=== PATIENT | male | born 1985 | race Hispanic/Latino ===

== ENCOUNTER 2018-01-31 16:15 | Emergency (ER) | payer OTHER ==
[2018-01-31] MEDS ORDERED: RABIES IMMUNE GLOBULIN 1500 INTERNATIONAL UNITS/10 ML VIAL (90375) IM ×2 (16:45→17:30)
[2018-01-31] MEDS: ADACEL/BOOSTRIX VACCINE (DIPHTH/PERTUSS/ACELL/TETANUS)0.5ML SYR (90715) IM (17:17)
[2018-01-31] MEDS: RABIES VACCINE HUMAN 2.5 INTERNATIONAL UNITS/ML VIAL (90675) IM (17:18)
[2018-01-31] MEDS: RABIES IMMUNE GLOBULIN 1500 INTERNATIONAL UNITS/10 ML VIAL (90375) IM (17:50)
[2018-01-31] MEDS: RABIES IMMUNE GLOBULIN 300 INTERNATIONAL UNITS/2 ML VIAL (90375) IM (17:51)
== END 2018-01-31 18:23 | disposition home or self-care (01) ==
LOC: M ED 16:15
DX: Z20.3 Contact with and (suspected) exposure to rabies (principal); S81.052A Open bite, left knee, initial encounter; W54.0XXA Bitten by dog, initial encounter; Y92.410 Unspecified street and highway as the place of occurrence of the external cause; Y93.9 Activity, unspecified; Y99.9 Unspecified external cause status; Z79.899 Other long term (current) drug therapy
CPT/HCPCS: 90715

== ENCOUNTER → 2018-07-27 | Outpatient (CLI) | payer OTHER, MEDICAID ==
[2018-07-27 15:58] LABS: BASO % 0.5 % (0.0-1.0); EOS # 0.3 10^3/uL (0.0-0.50); EOS % 3.9 % (0.0-3.0); HEMATOCRIT 43.9 % (42.0-52.0); HEMOGLOBIN 15.4 g/dl (13.5-17.5); IMMATURE GRANULOCYTE % 0.1 % (0-3.0); LYMPH % 39.3 % (24.0-44.0); MEAN CORPUSCULAR HEMOGLOBIN 30.2 pg (27.0-33.0); MEAN CORPUSCULAR HGB CONC 35.1 g/dl (32.0-36.5); MEAN CORPUSCULAR VOLUME 86.1 fl (80.0-96.0); MONO # 0.4 10^3/uL (0.0-0.8); MONO % 5.1 % (0.0-5.0); NEUTROPHILS # 3.9 10^3/uL (1.8-7.7); NEUTROPHILS % 51.1 % (36.0-66.0); PLATELET COUNT, AUTOMATED 208 10^3/uL (150-450); RED CELL DISTRIBUTION WIDTH 12.4 % (11.5-14.5); WHITE BLOOD COUNT 7.6 10^3/uL (4.0-10.0)
[2018-07-27 16:37] LABS: ALBUMIN 4.3 GM/DL (3.2-5.2); ALBUMIN/GLOBULIN RATIO 1.34 (1.00-1.93); ALKALINE PHOSPHATASE 63 U/L (45-117); ALT/SGPT 39 U/L (12-78); ANION GAP 6 MEQ/L (8-16); AST/SGOT 28 U/L (7-37); BILIRUBIN,TOTAL 0.4 MG/DL (0.2-1.0); BLOOD UREA NITROGEN 19 MG/DL (7-18); CALCIUM LEVEL 9.1 MG/DL (8.5-10.1); CARBON DIOXIDE LEVEL 30 MEQ/L (21-32); CHLORIDE LEVEL 105 MEQ/L (98-107); FREE T4 1.06 NG/DL (0.76-1.46); GLOMERULAR FILTRATION RATE > 60.0 (>60); GLUCOSE, FASTING 104 MG/DL (70-100); IMMUNOGLOBULIN A 213 MG/DL (70-400); POTASSIUM SERUM 4.4 MEQ/L (3.5-5.1); SODIUM LEVEL 141 MEQ/L (136-145); TOTAL PROTEIN 7.5 GM/DL (6.4-8.2)
== END ==
LOC: M LAB 15:27
DX: R19.4 Change in bowel habit (principal)
CPT/HCPCS: 84443

== ENCOUNTER → 2018-07-28 | Outpatient (REF) | payer OTHER, MEDICAID | LOC: M LAB REF 12:54 | DX: R19.4 Change in bowel habit (principal) ==

== ENCOUNTER 2018-08-13 11:20 | Day surgery (SDC) | payer OTHER, MEDICAID ==
[2018-08-13] MEDS: NS 1,000 ML IV (11:32)
[2018-08-13] MEDS ORDERED: PROPOFOL 500 MG/50 ML VIAL As Ordered (12:07)
[2018-08-13] MEDS ORDERED: fentaNYL 100 MCG/2 ML INJECTION (J3010) As Ordered (12:07)
[2018-08-13] MEDS ORDERED: LIDOCAINE 2% INJ 100 MG/5 ML SDV (FOR ANES.) As Ordered (12:07)
== END 2018-08-13 13:11 | disposition home or self-care (01) ==
LOC: M OPP 11:20
DX: K92.1 Melena (principal); K64.8 Other hemorrhoids; K29.70 Gastritis, unspecified, without bleeding; J45.909 Unspecified asthma, uncomplicated; E07.9 Disorder of thyroid, unspecified; Z79.890 Hormone replacement therapy; Z80.3 Family history of malignant neoplasm of breast
CPT/HCPCS: 45378

== ENCOUNTER → 2019-08-26 | Outpatient (REF) | payer OTHER, MEDICAID ==
[~2019-08-26] MED LIST: AUGM875T28 PO; LEVO200T4
== END ==
LOC: M SMT 13:33
PROVIDERS: ATTEND Urology
DX: Z30.2 Encounter for sterilization (principal)

== ENCOUNTER 2021-08-01 14:15 | Emergency (ER) | payer OTHER, MEDICAID ==
[~2021-08-01] VITALS: Ht 180.3 cm; Wt 91.9 kg
--- OUTSIDE RECORDS SUMMARY | 2021-08-01 14:22 | CCD ---
Author Author [facility] Organization [facility] Address [address] [place] [address] Phone Care Team Providers Care Captain Room Service Name Role Phone Jonnathan RAUSCH, Lilli Unavailable [phone] Kamini RAUSCH, Morro Unavailable [phone] Morro Cristobal MD Unavailable Unavailable Sirisha RAUSCH, Zak Unavailable [phone] Kassy RAUSCH, Urbano Reed PP [phone] Lorenzo RAUSCH, Anup Unavailable [phone] Bernard RAUSCH, Harley Amezquita Unavailable Unavailable Reason for Referral No Reason for Referral Recorded Problems Includes: Active, inactive, and resolved Problems All Visits Onset Date - Time Resolved Date - Time Provider Co ndition Status Hypothyroidism Post Radio-iodine Treatment 02/28/2021 - 6:46PM Urbano Elena MD Active Note: Initially with Dr De Santiago 2014 Dyspepsia 08/13/2018 - 12:00AM Urbano hensley MD Active Note: nl EGD 08/03 Dr Evelyn palmer colonoscopy for hematochezia Simple Goiter 08/23/2014 - 12:00AM Sumit Larson MD Active Asthma, unspecified, 10/01/2013 - 12:00AM Eliz ritter RPA Active Plan of Treatment Pending Tests Order Diagnosis Results Due Ordering Provi paxton Outside Labs COVID-19 Acute pharyngitis, unspecified 07/30/21 Maria Eugenia Warner RPA Outside Labs TotalTestosterone Other fatigue 08/04/21 Maria Eugenia bell RPA Future Appointments Date Time Location Provider ANNUAL PE-followup exam07/08/2022 3:00PM [facility] Maria Eugenia Herrera [facility] Future Tests Order Diagnosis Results Due Ordering Provid er Lab CBC 08/04/21 [facility] Lab CMP 08/04/21 [facility] Lab FREET4 08/04/21 [facility] Lab Lipid Panel 08/04/21 [facility] Send Out 08/04/21 [facility] TSH 08/04/21 [facility] Findings Encounter Date Education and counseling Age and gender specific counceling on preventative health discussed with the patient using USPTF and/or ACP guidlines on health maintenance and screening. Will recheck fasting labs to include testosterone. Otherwise, see yearly or as needed in the interim ANNUAL PE-followup exam with Maria Eugenia Sharon Timmy [facility] 07/05/2021 Discussed treatment plan with the ujancarlos ent. Will get labs as above and call once results are available. We did discuss appropriate dosing of his thyroid medication. Id like him to take this first thing in the morning on an empty stomach with glass of water. Wait 30-60 minutes prior to eating. Push vitamins to supper time. Reviewed improved sleep hygiene. Will plan to see yearly or as needed in the interim Problem visit - not contagious with Maria Eugeniaolivia Wynnetyler [facility] 07/04/2020 Tylenol for discomfort or fever. Push fluids and rest. Will proceed with PCR respiratory panel and if negative proceed with COVID testing. He is agreeable. Will follow up via phone once results are known. Hygiene reviewed today. Call if persistent or high fever, increased work of breathing, persistent pain, if sxs not improving, or if concerned sick visit with Maria Eugenia Warner [facility] 11/29/2019 Discussed treatment plan with the juancarlos ent. Recommended to start a food diary to look for any specific dietary triggers. Also recommended to increase dietary fiber with citrucel or metamucil. Given persistent symptoms, blood in the stool and family history will refer for further workup and evaluation per his request. See back with questions or concerns sick visit with Maria Eugenia Warner [facility] 05/06/2018 Engaged in a lengthy conversation with the patient regarding his symptoms. >50% of visit spent in counseling and discussion. I suspect these to be anxiety induced as he lacks any cardiac risk factors. However, given persistence will refer to Cardiology for further evaluation. Reviewed red flag signs and symptoms that would warrant prompt ER follow up and he expressed good understanding sick visit with Maria Eugenia M Warner [facility] 07/21/2017 Discussed treatment plan with patient. Symptoms and exam consistent with gastrocnemius strain. However, given concern for bony abnormality on previous imaging, plain films were obtained today and unremarkable. Recommended to stretch, use moist heat and wear proper footwear. See back with any worsening or persistent symptoms, questions or concerns sick visit with Maria Eugenia Sharon Warner [facility] 04/23/2017 Tylenol for discomfort or fever. Push fluids and rest. Advised to call if persistent or high fever, increased work of breathing, persistent pain, if sxs not improving, or if concerned sick visit with Maria Eugenia Sharon Warner [facility] 12/03/2016 Discussed treatment plan with the juancarlos ent. Given his occupation, recommended changing his carrying technique to limit amount of time his elbow and wrist are in the flexed position. We also discussed the use of splint/braces during hours of sleep. If symptoms worsening or persistent, recommended further assessment with nerve conduction testing and orthopedist referral. He expressed good understanding sick visit with Maria Eugenia Sharon Warner [facility] 09/25/2016 Engaged in a lengthy conversation with the patient regarding his symptoms. I suspect these to be anxiety induced as he lacks and cardiac risk factors. However, will obtain a holter monitor to check for any rhythm abnormalities and update fasting labs. He will keep more of a detailed account of symptoms and potential triggers. Reviewed red flag signs and symptoms that would warrant any prompt urgent follow up and he expressed good understanding. See back in 2-3 weeks for follow up or sooner if issues arise sick visit with Maria Eugenia Sharon Timmy [facility] 05/22/2016 Saline nasal spray as needed. General mechanisms of infectious spread and hygiene reviewed with the patient. Instructed to call if symptoms fail to improve over next several days sick visit with Akbar Lawrence MD 06/05/2015 No ordered inhaled / nasal steroids sick visit with Akbar Lawrence MD 06/05/2015 No ordered vaporizer sick visit with Akbar Lawrence MD 2014 Ordered analgesics sick visit with Akbar Lawrence MD 015 Assessments Includes: Assessments for all patient encounters Findings Encounter Date Fatigue ANNUAL PE-followup exam/ with Maria Eugenia Warner [facility] 07/05/2021 Hypothyroidism post radio-iodine treatment ANNUAL PE-f ollowup exam/ with [facility] 07/05/2021 Routine adult history and physical (18 - 64 yrs) MARICEL Juan Luis PE-followup with [facility] 07/05/2021 Fatigue Problem visit - not contagious with [facility] 07/04/2020 Hypothyroidism Problem visit - not contagious with [facility] 07/04/2020 Upper respiratory infection , viral in nature sick vis it with [facility] 11/29/2019 Abdominal pain , suspect IBS component sick visit with [facility] 05/06/2018 Palpitations sick visit with [facility] 02/2017 Strain of gastrocnemius muscle of right leg sick visit with [facility] 04/23/2017 Acute sinusitis sick visit with [facility] 11/14 Carpal tunnel syndrome , bilateral L>R sick visit with [facility] 09/25/2016 Cubital tunnel syndrome , bilateral L>R sick visit with [facility] 09/25/2016 Palpitations sick visit with [facility] 03/2016 Acute upper respiratory infection sick visit with Akbar Ambrosio MD 06/05/2015 Allergic contact dermatitis due to chemical products s ick visit with Eliz Larson [facility] 11/30/2014 Simple goiter followup with Sumit Larson MD 05/2014 GERD sick visit with Eliz Larson [facility] 07/16 Pharyngitis sick visit with Eliz Larson [facility] 09/15 Instructions Instructions not supported for this document typeNo Instructions Recorded Medical Equipment - Implanted Devices Includes: Current and historical DevicesNo Medical Equipment Recorded Medications Includes: Current and historical Medications Current Medications (continue as prescribed) Levothyroxine Sodium 200 MCG Oral Tablet 06/27/2021 - 2021 Provider: Maria Eugenia Warner [facility] Diagnosis: 1 PO QD Past Medications on file Levothyroxine Sodium 200 MCG Oral Tablet 06/12/2021 - 2020 Provider: Maria Eugenia Warner RPA Diagnosis: 1 PO QD Levothyroxine Sodium 200 MCG Oral Tablet 05/07/2021 - 2020 Provider: Maria Eugenia Warner [facility] Diagnosis: 1 PO QD Levothyroxine Sodium 200 MCG Oral Tablet 03/03/2021 - 2019 Provider: Urbano Elena MD Diagnosis: 1 PO QD Levothyroxine Sodium 200 MCG Oral Tablet 10/09/2020 - 2020 Provider: Urbano Elena MD Diagnosis: 1 PO QD Levothyroxine Sodium 200 MCG Oral Tablet 05/18/2020 - 2020 Provider: Urbano Elena MD Diagnosis: 1 PO QD Levothyroxine Sodium 200 MCG Oral Tablet 03/13/2020 - 2019 Provider: Urbano Elena MD Diagnosis: 1 PO QD Levothyroxine Sodium 200 MCG Oral Tablet 10/11/2019 - 2019 Provider: Maria Eugenia Warner RPA Diagnosis: 1 PO QD Levothyroxine Sodium 25MCG Oral Tablet 08/05/2019 - 10/04/19 20 Provider: Maria Eugenia Warner RPA Diagnosis: Hypothyroidism, unsp ecified 1 PO QD in addition to 200mcg dose Levothyroxine Sodium 200MCG Oral Tablet 08/05/2019 - 018 Provider: Maria Eugenia Warner RPA Diagnosis: 1 PO QD Levothyroxine Sodium 200 MCG OR TABS 04/27/2019 - 05/06/2018 Provider: Maria Eugenia Warner RPA Diagnosis: 1 PO QD Levothyroxine Sodium 25 MCG OR TABS 04/27/2019 - 05/06/2018 Provider: Maria Eugenia Warner RPA Diagnosis: Hypothyroidism, unsp ecified 1 PO QD in addition to 200mcg dose Levothyroxine Sodium 25MCG Oral Tablet 01/25/2019 - 05/06/20 18 Provider: Maria Eugenia Warner RPA Diagnosis: Hypothyroidism, unsp ecified 1 PO QD in addition to 200mcg dose Levothyroxine Sodium 200MCG Oral Tablet 01/25/2019 - 018 Provider: Maria Eugenia Warner RPA Diagnosis: 1 PO QD Levothyroxine Sodium 200MCG Oral Tablet 11/24/2018 - 018 Provider: Maria Eugenia Warner RPA Diagnosis: 1 PO QD Levothyroxine Sodium 25MCG Oral Tablet 09/25/2018 - 05/06/20 18 Provider: Maria Eugenia Warner RPA Diagnosis: Hypothyroidism, unsp ecified 1 PO QD in addition to 200mcg dose Levothyroxine Sodium 200MCG Oral Tablet 09/03/2018 - 018 Provider: Maria Eugenia Warner RPA Diagnosis: 1 PO QD Levothyroxine Sodium 200MCG Oral Tablet 02/02/2018 - 018 Provider: Maria Eugenia Warner RPA Diagnosis: 1 PO QD Cartia XT 120MG Oral Capsule Extended Release 24 Hour 2016 - 07/05/2021 Provider: Diagnosis: Levothyroxine Sodium 200MCG Oral Tablet 07/22/2017 - 017 Provider: Maria Eugenia Warner RPA Diagnosis: 1 PO QD Levothyroxine Sodium 175 MCG Tablet 06/13/2017 - 07/22/2017 Provider: Urbano Elena MD Diagnosis: 1 PO QD Levothyroxine Sodium 175 MCG Tablet 06/13/2017 - 04/23/2017 Provider: Maria Eugenia Warner RPA Diagnosis: 1 PO QD Fluticasone Propionate 50 MCG/ACT Suspension 12/03/2016 - Provider: Maria Eugenia Warner RPA Diagnosis: 1 spray each nostril BID Augmentin 875-125 MG Tablet 12/03/2016 - 07/05/2021 Provider : Maria Eugenia Warner RPA Diagnosis: 1 PO BID Levothyroxine Sodium 175 MCG Tablet 05/22/2016 - 04/23/2017 Provider: Diagnosis: Triamcinolone Acetonide 0.1 % Cream 11/30/2014 - 05/22/2016 Provider: Eliz Larson RPA Diagnosis: apply to affected area BID until rash completely resolves HydrOXYzine HCl 25 MG Tablet 11/30/2014 - 07/05/2021 Provide r: Eliz Larson RPA Diagnosis: 1-2 tabs PO Q 4-6 hrs prn pruritis Omeprazole 20 MG OR CPDR 07/29/2014 - 05/22/2016 Provider: Eliz Larson RPA Diagnosis: Penicillin V Potassium 500 MG OR TABS 10/01/2013 - Provider: Eliz Larson RPA Diagnosis: Medications Administered Includes: Administered Medications in patient's chartNo Administered Medications Recorded Vital Signs Includes: Vital Signs from 07/23/2020 through 07/23/2021 Vital Name 07/23/2021 03:59P 07/05/2021 03:07P 07/05/2021 0 2:50P Height (in) 70.5 70.5 Blood Pressure Sitting (mmHg) 132/82 15 0/88 Pulse Rate-Sitting (bpm) 80 Respiration Rate (breaths/min) 2 2 Weight (lb) 216 Body Mass Index (kg/m2) 30.6 Body Surface Area (m2) 2.17 Note: Provider recheck Results Includes: Results from 07/23/2020 through 07/23/2021 FREE T4 [facility] Ordered by Urbano Elena MD on 07/05/2021 [address] [place], [address] Collected: 07/05/2021 Reported: 07/05/2021 14:25 tel :[phone] ext. 1500 FREE T4 0.83 ng/dl (0.75-1.54) None Note: Responsible Observer: KM Reviewed by Maria Eugenia Warner RPA on 07/09; All test results are final unless otherwise noted. TSH [facility] Ordered by Urbano Elena MD on 07/05/2021 [address] [place], [address] Collected: 07/05/2021 Reported: 07/05/2021 14:25 tel :[phone] ext. 1500 TSH 29.305 uIu/mL (0.5-5.8) H (High) Note: Responsible Observer: KM Reviewed by Maria Eugenia Warnre RPA on 07/09; All test results are final unless otherwise noted. FREE T4 (LAB) [facility] Ordered by Urbano Elena MD on 02/23/2021 Collected: 02/23/2021 Reported: 02/23/2021 17:39 T4 Free SerPl-mCnc 0.92 NanoGramsPerDeciLiter_[Mass_Concentration_Units] (0.89-1.76) N (Normal) Note: Responsible Observer: FREE T4 Free Thyroxine 600.7005 (D) Reviewed on 02/26/2021; All test result s are final unless otherwise noted. Vitamin D 25-OH [facility] Ordered by Urbano Elena MD on 02/23/2021 Collected: 02/23/2021 Reported: 02/25/2021 06:41 25(OH)D3+25(OH)D2 SerPl-mCnc 22 NanoGramsPerMilliLiter_[Mass_Concentration_Units] (30-100) None Note: Vitamin D Status 25-OH Vit borrero D:Deficiency: <20 ng/mLInsufficiency: 20 - 29 ng/mLOptimal: > or = 30 ng/mLFor 25-OH Vitamin D testing on patients onD2-supplementation and patients for whom quantitationof D2 and D3 fractions is required, the QuestAssureD(TM)25-OH VIT D, (D2,D3), LC/MS/MS is recommended: ordercode 82414 (patients >2yrs).See Note 1Note 1For additional information, please refer tohttp://education.Altavoz/faq/ZHC813(This link is being provided for informational/educational purposes only.)THIS TEST WAS PERFORMED AT:[facility] [address]MADAN MARIesponsible Observer: Vitamin D 25-OH Vitamin D 25-Hydroxy [id number] 914.1810 (QUEST) Reviewed on 02/26/2021; All test result s are final unless otherwise noted. Reported Physicians [facility] Ordered by Urbano Elena MD on 02/23/2021 Collected: 02/23/2021 Reported: 02/25/2021 06:41 Reported Physicians See Note None Note: Reported Physicians:Ordering: Urbano Huitron LAtmariluding: Urbano Elena Reviewed on 02/26/2021; All test result s are final unless otherwise noted. TSH [facility] Ordered by Urbano Elena MD on 02/23/2021 Collected: 02/23/2021 Reported: 02/23/2021 17:39 TSH SerPl DL<=0.005 mIU/L-aCnc 7.81 MicroInternationalUnitsPerMilliLiter_[Arbitrary_Con (0.35-5. 50) H (High) Note: Responsible Observer: TSH TSH 600 .7055 (D) Reviewed by Urbano Elena MD on 02/28/2021; All test results are final unless otherwise noted. Reported Physicians [facility] Ordered by Urbano Elena MD on 02/23/2021 Collected: 02/23/2021 Reported: 02/23/2021 17:39 Reported Physicians See Note None Note: Reported Physicians:Ordering: Urbano Huitronding: Urbano Elena Reviewed by Urbano Elena MD on 02/28/2021; All test results are final unless otherwise noted. 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 Not a current smoker 06/05/2015 Smoking Status Unknown Procedures and Surgical History Includes: Procedures from 07/23/2020 through 07/23/2021 Procedures Code Diagnosis Performing Provider Service Location Service Date TSH- Thyroid Stimulating Hormone 56474 Postprocedural hypothyroidism Urbano Elena MD [facility] 07/05/2021 Free T4- Free Thryoxine 21756 Postprocedural hypothyr oidism Urbano Elena MD [facility], [facility] 07/05/2021 Venipuncture (routine) 41163 Postprocedural hypothyroi dism Urbano Elena MD [facility], [facility] 07/05/2021 Medical History Includes: Medical History in patient's chart Description Last Updated Denial of any significant medical history 07/05/2021 Not taking OTC medications 06/05/2015 Family History Includes: Family History in patient's chart Description Last Updated Brother in good health 07/05/2021 Mother is alive HTN, DM 07/05/2021 Second brother in good health 07/05/2021 Sister in good health 07/05/2021 Maternal grandfather health status was reviewed HTN 1 09/28/2013 Review of Systems Review of Systems not supported for this document typeNo Review of Systems Recorded Mental Status Mental Status not supported for this document typeNo Mental Status Recorded Functional Status Functional Status not supported for this document typeNo Functional Status Recorded Physical Exam Physical Exam not supported for this document typeNo Physical Exam Recorded Immunizations Includes: Immunizations in patient's chartNo Immunizations Recorded Allergies Includes: Active, inactive, and resolved Allergies Substance Type Reaction Onset Date - Time Resolved Date - Ti me Status Zithromax Allergy anaphylaxis 10/28/2011 - 12:00AM Act haydee Compazine Allergy unknown 03/24/2009 - 12:00AM Acti ve Encounters Includes: Encounters from 07/23/2020 through 07/23/2021 Encounter Provider Location Date Check-In Time Check-Out Time D iagnosis nursing visit Maria Eugenia Warner [facility], [facility] 07/23/2021 3:22PM 3:58PM ANNUAL PE-followup exam/30 Maria Eugenia Warner [facility], [facility] 07/05/2021 2:39PM 3:41PM Routine History and Physical Adult (18 - 64 Yrs), Hypothyroidism Post Radio-iodine Treatment, Fatigue [Patient Encounter] Urbano Elena MD 02/28/2021 1 6:46PM 07/04/2020 11:59PM Insurance Includes: Active Insurance Policies Plan Name Member ID Group # Subscriber Relationship Effective Da randy 1 - [employer] insurance [id number] Sen Hernandez Self 2 - Medicaid [id number] Sen Hernandez Self 015 - Unknown Advance Directives Includes: Current Advance DirectivesNo Advance Directives Recorded Health Concerns Includes: Active Health ConcernsNo Active Health Concerns Recorded Goals Includes: Active GoalsNo Active Goals Recorded Interventions Includes: Interventions for active GoalsNo Interventions Recorded Evaluations & Outcomes Includes: Evaluations & Outcomes for active GoalsNo Outcomes Recorded
--- OUTSIDE RECORDS SUMMARY | 2021-08-01 14:22 | CCD ---
Author Author [facility] Organization [facility] Address [address] [place] [address] Phone Care Team Providers Care Billing Clerk Name Role Phone Jonnathan RAUSCH, Lilli Unavailable [phone] Kamini RAUSCH, Morro Unavailable [phone] Morro Cristobal MD Unavailable Unavailable Sirisha RAUSCH, Zak Unavailable [phone] Kassy RAUSCH, Urbano Reed PP [phone] Lorenzo RAUSCH, Anup Unavailable [phone] Bernard RAUSCH, Harley Amezquita Unavailable Unavailable Reason [...] Results Due Ordering Provi paxton Outside Labs TotalTestosterone Other fatigue 08/04/21 Maria Eugenia bell RPA Future Appointments Date Time Location Provider ANNUAL PE-followup 07/08/2022 3:00PM [facility], [facility] Maria Eugenia Warner RPA Future Tests Order Diagnosis Results Due Ordering Provid er Lab CBC 08/04/21 [facility] CMP 08/04/21 [facility] FREET4 08/04/21 [facility] Lipid Panel 08/04/21 [facility] Send Out 08/04/21 [facility] TSH 08/04/21 [facility] Findings Encounter Date Education and counseling Age and gender specific counceling on preventative health discussed with the patient using USPTF and/or ACP guidlines on health maintenance and screening. Will recheck fasting labs to include testosterone. Otherwise, see yearly or as needed in the interim ANNUAL PE-followup exam with Maria Eugenia Sharon Timmy [facility] 07/05/2021 Discussed treatment plan with the juancarlos ent. Will get labs as above and [...] Problem visit - not contagious with Maria Eugenia Warner A 07/04/2020 Tylenol for discomfort or fever. [...] concerned sick visit with Maria Eugenia Sharon Timmy [facility] 11/29/2019 Discussed treatment plan with the juancarlos ent. Recommended to start a food diary to look for any specific dietary triggers. Also recommended to increase dietary fiber with citrucel or metamucil. Given persistent symptoms, blood in the stool and family history will refer for further workup and evaluation per his request. See back with questions or concerns sick visit with Maria Eugenia M Warner [facility] 05/06/2018 Engaged in a lengthy conversation with [...] good understanding sick visit with Maria Eugenia Warner RPA 07/21/2017 Discussed treatment plan with patient. Symptoms and exam consistent with gastrocnemius strain. However, given concern for bony abnormality on previous imaging, plain films were obtained today and unremarkable. Recommended to stretch, use moist heat and wear proper footwear. See back with any worsening or persistent symptoms, questions or concerns sick visit with [facility] Sharon [facility] 04/23/2017 Tylenol for discomfort or fever. Push fluids and rest. Advised to call if persistent or high fever, increased work of breathing, persistent pain, if sxs not improving, or if concerned sick visit with [facility] Sharon [facility] 12/03/2016 Discussed treatment plan with the juancarlos ent. Given his occupation, recommended changing his carrying technique to limit amount of time his elbow and wrist are in the flexed position. We also discussed the use of splint/braces during hours of sleep. If symptoms worsening or persistent, recommended further assessment with nerve conduction testing and orthopedist referral. He expressed good understanding sick visit with [facility] 09/25/2016 Engaged in a lengthy conversation with [...] sooner if issues arise sick visit with [facility] 05/22/2016 Saline nasal spray as needed. General [...] encounters Findings Encounter Date Fatigue ANNUAL PE-followup exam/30 with [facility] 07/05/2021 Hypothyroidism post radio-iodine treatment ANNUAL PE-f ollowup exam/ with [facility] 07/05/2021 Routine adult history and physical (18 - 64 yrs) MARICEL Mcknight PE-followup exam/30 with Maria Eugenia Warner RPA 07/05/2021 Fatigue Problem visit - not contagious with [facility] holly [facility] 07/04/2020 Hypothyroidism Problem visit - not contagious with [facility] holly [facility] 07/04/2020 Upper respiratory infection , viral in nature sick vis it with [facility] 11/29/2019 Abdominal pain , suspect IBS component sick visit with [facility] 05/06/2018 Palpitations sick visit with [facility] 02/2017 Strain of gastrocnemius muscle of right leg sick visit with [facility] 04/23/2017 Acute sinusitis sick visit with [facility] 11/14 Carpal tunnel syndrome , bilateral L>R sick visit with [facility] 09/25/2016 Cubital tunnel syndrome , bilateral L>R sick visit with [facility] 09/25/2016 Palpitations sick visit with [facility] 03/2016 Acute upper respiratory infection sick visit with Akbar Ambrosio MD 06/05/2015 Allergic contact dermatitis due to chemical products s ick visit with Eliz Larson [facility] 11/30/2014 Simple goiter followup with Sumit Larson MD 05/2014 GERD sick visit with Eliz Larson [facility] 07/16 Pharyngitis sick visit with Eliz Larson [facility] 09/15 Instructions Instructions not supported for this document typeNo Instructions Recorded Medical Equipment - Implanted Devices Includes: Current and historical DevicesNo Medical Equipment Recorded Medications Includes: Current and historical Medications Current Medications (continue as prescribed) Levothyroxine Sodium 200 MCG Oral Tablet 06/27/2021 - 2021 Provider: Maria Eugenia Warner [facility] Diagnosis: 1 PO QD Past Medications on file Levothyroxine Sodium 200 MCG Oral Tablet 06/12/2021 - 2020 Provider: Maria Eugenia Warner [facility] Diagnosis: 1 PO QD Levothyroxine Sodium 200 MCG Oral Tablet 05/07/2021 - 2020 Provider: Maria Eugenia Warner [facility] Diagnosis: 1 PO QD Levothyroxine Sodium 200 [...] TABS 04/27/2019 - 05/06/2018 Provider: Maria Eugenia Warenr RPA Diagnosis: Hypothyroidism, unsp ecified 1 PO [...] Levothyroxine Sodium 200MCG Oral Tablet 09/03/2018 - 08/22/2 018 Provider: Maria Eugenia Warner RPA Diagnosis: [...] Recorded Vital Signs Includes: Vital Signs from 07/05/2020 through 07/05/2021 Vital Name 07/05/2021 03:07P 07/05/2021 02:50P Blood Pressure Sitting (mmHg) 132/82 150/88 Pulse Rate-Sitting (bpm) 80 Respiration Rate (breaths/min) 22 Height (in) 70.5 Weight (lb) 216 Body Mass Index (kg/m2) 30.6 Body Surface Area (m2) 2.17 Note: Provider recheck Results Includes: Results from 07/05/2020 through 07/05/2021 FREE T4 (LAB) [facility] Ordered by Urbano Elena MD on 02/23/2021 Collected: 02/23/2021 Reported: 02/23/2021 17:39 T4 Free SerPl-mCnc 0.92 NanoGramsPerDeciLiter_[Mass_Concentration_Units] (0.89-1.76) N (Normal) Note: Responsible Observer: FREE T4 Free Thyroxine 600.7005 (D) Reviewed on 02/26/2021; All test result s are final unless otherwise noted. Vitamin D 25-OH [facility] Ordered by Urbano Elena MD on [...] VIT D, (D2,D3), LC/MS/MS is recommended: ordercode 39347 (patients >2yrs).See Note 1Note 1For additional information, please refer tohttp://[email or web address].Flipora/faq/XOT662(This link is being provided for informational/educational purposes only.)THIS TEST WAS PERFORMED AT:[facility] [address]MADAN MARIesponsible Observer: Vitamin D 25-OH Vitamin D 25-Hydroxy 62064984 916.2215 ([facility]) Reviewed on 02/26/2021; All test result s are final unless otherwise noted. Reported Physicians [facility] Ordered by Urbano Elena MD on 02/23/2021 Collected: 02/23/2021 Reported: 02/25/2021 06:41 Reported Physicians See Note None Note: Reported Physicians:Ordering: Urbano Huitron: Urbano Elena Reviewed on 02/26/2021; All test result s are final unless otherwise noted. TSH [facility] Ordered by Urbano Elena MD on 02/23/2021 Collected: 02/23/2021 Reported: 02/23/2021 17:39 TSH SerPl DL<=0.005 mIU/L-aCnc 7.81 MicroInternationalUnitsPerMilliLiter_[Arbitrary_Con (0.35-5. 50) H (High) Note: Responsible Observer: TSH TSH 600 .7055 (D) Reviewed by Urbano Elena MD on 02/28/2021; All test results are final unless otherwise noted. Reported Physicians [facility] Ordered by Urbano Elena MD on 02/23/2021 Collected: 02/23/2021 Reported: 02/23/2021 17:39 Reported Physicians See Note None Note: Reported Physicians:Ordering: Urbano Huitron: Urbano Elena Reviewed by Urbano Elena MD on 02/28/2021; All test results are final unless otherwise noted. TEST [facility] Ordered by Maria Eugenia Warner RPA on 07/06/2020 Collected: 07/06/2020 Reported: 07/08/2020 05:51 Testosterone 355 NanoGramsPerDeciLiter_[Mass_Concentration_Units] (250-827) None Note: THIS TEST WAS PERFORMED AT:[facility] [address]TIREWTMADAN MARIesponsible Observer: Testosterone Testosterone [id number] 232.2522 ([facility]) Reviewed by Maria Eugenia Warner RPA on 07/10; All test results are final unless otherwise noted. Reported Physicians [facility] Ordered by Maria Eugenia Warner RPA on 07/06/2020 Collected: 07/06/2020 Reported: 07/08/2020 05:51 Reported Physicians See Note None Note: Reported Physicians:Ordering: Atte khoa: Maria Eugenia Warner Reviewed by Maria Eugenia Warner RPA on 07/10; All test results are final unless otherwise noted. Vitamin D 25-OH [facility] Ordered by Maria Eugenia Warner RPA on 07/06/2020 Collected: 07/06/2020 Reported: 07/08/2020 05:51 25(OH)D2+25(OH)D3 [facility] 19 NanoGramsPerMilliLiter_[Mass_Concentration_Units] (30-100) None Note: Vitamin D Status 25-OH Vit borrero D:Deficiency: <20 ng/mLInsufficiency: 20 - 29 ng/mLOptimal: > or = 30 ng/mLFor 25-OH Vitamin D testing on patients onD2-supplementation and patients for whom quantitationof D2 and D3 fractions is required, the [facility](TM)25-OH VIT D, (D2,D3), LC/MS/MS is recommended: ordercode 93158 (patients >2yrs).See Note 1Note 1For additional information, please refer tohttp://education.[employer].Flipora/faq/ELQ035(This link is being provided for informational/educational purposes only.)THIS TEST WAS PERFORMED AT:[facility] [address]MADAN MARIesponsible Observer: Vitamin D 25-OH Vitamin D 25-Hydroxy [id number] 914.4629 ([facility]) Reviewed by Maria Eugenia Warner RPA on 07/10; All test results are final unless otherwise noted. Reported Physicians [facility] Ordered by Maria Eugenia Warner RPA on 07/06/2020 Collected: 07/06/2020 Reported: 07/08/2020 05:51 Reported Physicians See Note None Note: Reported Physicians:Ordering: Attalyson couch: Maria Eugenia Warner Reviewed by Maria Eugenia Warner RPA on 07/10; All test results are final unless otherwise noted. CBC [facility] Ordered by Maria Eugenia Warner RPA on 07/06/2020 [address] [place], [address] Collected: 07/06/2020 Reported: 07/06/2020 13:12 tel :[phone] ext. 1500 GRAN# 3.0 /mm3 (2.5-7.5) None Note: Responsible Observer: KM GRAN% 49.1 % (50.0-75.0) L (Low) Note: Responsible Observer: KM HCT 46.9 % (42-52) None Note: Responsible Observer: KM HGB 15.8 g/dl (12.0-17.4) None Note: Responsible Observer: KM LY# 2.8 /mm3 (1.3-4.0) None Note: Responsible Observer: KM LY% 45.3 % (25-40.0) H (High) Note: Responsible Observer: KM MCH 30.9 pg (27.0-34.0) None Note: Responsible Observer: KM MCHC 33.6 G/DL (30.0-35.0) None Note: Responsible Observer: KM MCV 92.0 um3 (76.0-94.0) None Note: Responsible Observer: KM MID# 0.3 /mm3 (0.1-0.7) None Note: Responsible Observer: KM MID% 5.5 % (3.0-7.0) None Note: Responsible Observer: KM MPV 10.4 um3 (8.0-15.0) None Note: Responsible Observer: KM PLT 188 /mm3 (150-440) None Note: Responsible Observer: KM RBC 5.1 /mm3 (4.00-5.50) None Note: Responsible Observer: KM RDW 14.9 % (13.0-15.0) None Note: Responsible Observer: KM WBC 6.1 /mm3 (4.0-10.0) None Note: Responsible Observer: KM Reviewed by Maria Eugenia Warner RPA on 07/06; All test results are final unless otherwise noted. [facility] Ordered by Maria Eugenia Warner RPA on 07/06/[address] [place] [address], [address] Collected: 07/06/2020 Reported: 07/06/2020 13:12 tel :[phone] ext. 1500 Albumin 4.7 g/dl (3.4-5.0) None Note: Responsible Observer: KM Alkaline Phos 63 IU/L (39-117) None Note: Responsible Observer: KM ALT 26 IU/L (4-40) None Note: Responsible Observer: KM AST 16 IU/L (4-37) None Note: Responsible Observer: KM Urea Nitrogen 15 mg/dl (6-20) None Note: Responsible Observer: KM Calcium 9.7 mg/dl (8.4-10.2) None Note: Responsible Observer: KM Chloride 103 mmol/L (96-108) None Note: Responsible Observer: KM CO2 24 mmol/L (23-31) None Note: Responsible Observer: KM Creatinine 1 mg/dl (0.5-1.2) None Note: Responsible Observer: KM EGFR - AfricanAm > 60 N/A (-) None Note: Responsible Observer: KM EGFR - Non AF AM > 60 N/A (-) None Note: Responsible Observer: KM Glucose 99 mg/dl (70-105) None Note: Responsible Observer: KM Potassium 4.7 mmol/L (3.2-5.4) None Note: Responsible Observer: KM Sodium 138 mmol/L (133-145) None Note: Responsible Observer: KM Total Bilirubin 0.7 mg/dl (0.0-1.2) None Note: Responsible Observer: KM Total Protein 7.3 g/dl (6.0-8.0) None Note: Responsible Observer: KM Reviewed by Maria Eugenia Warner RPA on 07/06; All test results are final unless otherwise noted. FREE T4 [facility] Ordered by Maria Eugenia Warner RPA on 07/06/[address] [place] [address], [address] Collected: 07/06/2020 Reported: 07/06/2020 13:12 tel :[phone] ext. 1500 FREE T4 0.94 ng/dl (0.75-1.54) None Note: Responsible Observer: KM Reviewed by Maria Eugenia Warner RPA on 07/06; All test results are final unless otherwise noted. TSH [facility] Ordered by Maria Eugenia Warner [facility] on 07/06/[address] [place] [address], [address] Collected: 07/06/2020 Reported: 07/06/2020 13:12 tel :[phone] ext. 1500 TSH H uIu/mL (0.5-5.8) L (Low) Note: Test Comment : Resulted 20.89Respo nsible Observer: KM Reviewed by Maria Eugenia Warner [facility] on 07/06; All test results are final unless otherwise noted. 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 Not a current smoker 06/05/2015 Smoking Status Unknown Procedures and Surgical History Includes: Procedures from 07/05/2020 through 07/05/2021 Procedures Code Diagnosis Performing Provider Service Location Service Date TSH- Thyroid Stimulating Hormone 59888 Postprocedural hypothyroidism Urbano Elena MD [facility], [facility] 07/05/2021 Free T4- Free Thryoxine 22373 Postprocedural hypothyr oidism Urbano Elena MD [facility], [facility] 07/05/2021 Venipuncture (routine) 95714 Postprocedural hypothyroi dism Urbano Elena MD [facility], [facility] 07/05/2021 Free T4- Free Thryoxine 08044 Other fatigue, Hypothyr oidism, unspecified Maria Eugenia Herrera [facility], [facility] 07/06/2020 General Health Panel( CMP, CBC, TSH) 32764 Oth er fatigue, Hypothyroidism, unspecified Maria Eugenia Herrera [facility], [facility] 020 Venipuncture (routine) 42359 Other fatigue, Hypothyroi dism, unspecified Maria Eugenia Replaced by [facility], [facility] 07/06/2020 Medical History Includes: Medical History in patient's [...] Mental Status not supported for this document type Description No anxiety Functional Status Functional Status not supported for [...] 12:00AM Acti ve Encounters Includes: Encounters from 07/05/2020 through 07/05/2021 Encounter Provider Location Date Check-In Time Check-Out Time D iagnosis ANNUAL PE-followup exam Maria Eugenia Warner [facility], [facility] 07/05/2021 2:39PM 3:41PM Routine History and Physical Adult (18 - 64 Yrs), Hypothyroidism Post Radio-iodine Treatment, Fatigue [Patient Encounter] Urbano Elena MD 02/28/2021 1 6:46PM 07/04/2020 11:59PM Insurance Includes: Active Insurance Policies Plan Name Member ID Group # Subscriber Relationship Effective Da randy 1 - [employer] insurance [id number] Sen Hernandez Self 2 - Medicaid [id number] Sen Hernandez Self [id number] - Unknown Advance Directives Includes: Current Advance DirectivesNo Advance Directives Recorded Health Concerns Includes: Active Health ConcernsNo Active Health Concerns Recorded Goals Includes: Active GoalsNo Active Goals Recorded Interventions Includes: Interventions for active GoalsNo Interventions Recorded Evaluations & Outcomes Includes: Evaluations & Outcomes for active GoalsNo Outcomes Recorded
--- OUTSIDE RECORDS SUMMARY | 2021-08-01 14:22 | CCD ---
Author Author [facility] Organization [facility] Address Unknown Phone Unavailable Care Team Providers Care Protective Officer Name Role Phone Juan Luis Elena MD Unavailable Unavailable Juan Luis Elena MD Unavailable Unavailable Juan Luis Elena MD Unavailable Unavailable Juan Luis Elena MD Unavailable Unavailable Juan Luis Elena MD Unavailable Unavailable Juan Luis Elena MD Unavailable Unavailable Juan Luis Elena MD Unavailable Unavailable Juan Luis Elena MD Unavailable Unavailable Juan Luis Elena MD Unavailable Unavailable Juan Luis Elena MD Unavailable Unavailable Juan Luis Elena MD Unavailable Unavailable Juan Luis Elena MD Unavailable Unavailable Juan Luis Elena MD Unavailable Unavailable Juan Luis Elena MD Unavailable Unavailable Juan Luis Elena MD Unavailable Unavailable LyndaJuan Luis lindo MD Unavailable Unavailable LyndaJuan Luis lindo MD Unavailable Unavailable LyndaJuan Luis lindo MD Unavailable Unavailable LyndaJuan Luis lindo MD Unavailable Unavailable LyndaJuan Luis lindo MD Unavailable Unavailable LyndaJuan Luis lindo MD Unavailable Unavailable LyndaJuan Luis lindo MD Unavailable Unavailable LyndaJuan Luis lindo MD Unavailable Unavailable LyndaJuan Luis lindo MD Unavailable Unavailable LyndaJuan Luis lindo MD Unavailable Unavailable LyndaJuan Luis lindo MD Unavailable Unavailable LyndaJuan Luis lindo MD Unavailable Unavailable LyndaJuan Luis lindo MD Unavailable Unavailable LyndaJuan Luis lindo MD Unavailable Unavailable LyndaJuan Luis lindo MD Unavailable Unavailable LyndaJuan Luis lindo MD Unavailable Unavailable LyndaJuan Luis lindo MD Unavailable Unavailable LyndaJuan Luis lindo MD Unavailable Unavailable LyndaJuan Luis lindo MD Unavailable Unavailable LyndaJuan Luis lindo MD Unavailable Unavailable LyndaJuan Luis lindo MD Unavailable Unavailable LyndaJuan Luis lindo MD Unavailable Unavailable LyndaJuan Luis lindo MD Unavailable Unavailable LyndaJuan Luis lindo MD Unavailable Unavailable LyndaJuan Luis lindo MD Unavailable Unavailable LyndaJuan Luis lindo MD Unavailable Unavailable LyndaJuan Luis lindo MD Unavailable Unavailable LynJuan Luis garcia MD Unavailable Unavailable LyndaJuan Luis lindo MD Unavailable Unavailable LyndaJuan Luis lindo MD Unavailable Unavailable LynJuan Luis garcia MD Unavailable Unavailable LynJuan Luis garcia MD Unavailable Unavailable LynJuan Luis garcia MD Unavailable Unavailable LynJuan Luis garcia MD Unavailable Unavailable LynJuan Luis garcia MD Unavailable Unavailable LyndaJuan Luis lindo MD Unavailable Unavailable LyndaJuan Luis lindo MD Unavailable Unavailable LynJuan Luis garcia MD Unavailable Unavailable LynJuan Luis garcia MD Unavailable Unavailable LynJuan Luis garcia MD Unavailable Unavailable LynJuan Luis garcia MD Unavailable Unavailable LyndaJuan Luis lindo MD Unavailable Unavailable LyndaJuan Luis lindo MD Unavailable Unavailable LyndaJuan Luis lindo MD Unavailable Unavailable LyndaJuan Luis lindo MD Unavailable Unavailable LynJuan Luis garcia MD Unavailable Unavailable LynJuan Luis garcia MD Unavailable Unavailable LynJuan Luis garcia MD Unavailable Unavailable LyndaJuan Luis lindo MD Unavailable Unavailable LyndaJuan Luis lindo MD Unavailable Unavailable LynJuan Luis garciaen MD Unavailable Unavailable Juan Luis Elena MD Unavailable Unavailable Juan Luis Elena MD Unavailable Unavailable Juan Luis Elena MD Unavailable Unavailable Juan Luis Elena MD Unavailable Unavailable Juan Luis Elena MD Unavailable Unavailable Juan Luis Elena MD Unavailable Unavailable Juan Luis Elena MD Unavailable Unavailable Juan Luis Elena MD Unavailable Unavailable Juan Luis Elena MD Unavailable Unavailable Juan Luis Elena MD Unavailable Unavailable Juan Luis Elena MD Unavailable Unavailable Juan Luis Elena MD Unavailable Unavailable Juan Luis Elena MD Unavailable Unavailable Juan Luis Elena MD Unavailable Unavailable Juan Luis Elena MD Unavailable Unavailable Juan Luis Elena MD Unavailable Unavailable Juan Luis Elena MD Unavailable Unavailable Juan Luis Elena MD Unavailable Unavailable Juan Luis Elena MD Unavailable Unavailable Juan Luis Elena MD Unavailable Unavailable Juan Luis Elena MD Unavailable Unavailable Juan Luis Elena MD Unavailable Unavailable Juan Luis Elena MD Unavailable Unavailable Juan Luis Elena MD Unavailable Unavailable Juan Luis Elena MD Unavailable Unavailable Juan Luis Elena MD Unavailable Unavailable Juan Luis Elena MD Unavailable Unavailable Juan Luis Elena MD Unavailable Unavailable Juan Luis Elena MD Unavailable Unavailable Juan Luis Elena MD Unavailable Unavailable Juan Luis Elena MD Unavailable Unavailable Juan Luis Elena MD Unavailable Unavailable TURRIN, JENISE Unavailable Unavailable TURRIN, JENISE Unavailable Unavailable TURRIN, JENISE Unavailable Unavailable TURRIN, JENISE Unavailable Unavailable Warner, Maria Eugenia PA Unavailable Unavailable Warner, Maria Eugenia PA Unavailable Unavailable Warner, Maria Eugenia PA Unavailable Unavailable Warner, Maria Eugenia PA Unavailable Unavailable Warner, Maria Eugenia PA Unavailable Unavailable Warner, Maria Eugenia PA Unavailable Unavailable Warner, Maria Eugenia PA Unavailable Unavailable Warner, Maria Eugenia PA Unavailable Unavailable Warner, Maria Eugenia PA Unavailable Unavailable Warner, Maria Eugenia PA Unavailable Unavailable Warner, Maria Eugenia PA Unavailable Unavailable Warner, Maria Eugenia PA Unavailable Unavailable Warner, Maria Eugenia PA Unavailable Unavailable Warner, Maria Eugenia PA Unavailable Unavailable Warner, Maria Eugenia PA Unavailable Unavailable Warner, Maria Eugenia PA Unavailable Unavailable Warner, Maria Eugenia PA Unavailable Unavailable Warner, Maria Eugenia PA Unavailable Unavailable Warner, Maria Eugenia PA Unavailable Unavailable Warner, Maria Eugenia PA Unavailable Unavailable Warner, Maria Eugenia PA Unavailable Unavailable Warner, Maria Eugenia PA Unavailable Unavailable Warner, Maria Eugenia PA Unavailable Unavailable Warner, Maria Eugenia PA Unavailable Unavailable Warner, Maria Eugenia PA Unavailable Unavailable Warner, Maria Eugenia PA Unavailable Unavailable Warner, Maria Eugenia PA Unavailable Unavailable Warner, Maria Euegnia PA Unavailable Unavailable Warner, Maria Eugenia PA Unavailable Unavailable Warner, Maria Eugenia PA Unavailable Unavailable Warner, Maria Eugenia PA Unavailable Unavailable Warner, Maria Eugenia PA Unavailable Unavailable Warner, Maria Eugenia PA Unavailable Unavailable Warner, Maria Eugenia PA Unavailable Unavailable Warner, Maria Eugenia PA Unavailable Unavailable Warner, Maria Eugenia PA Unavailable Unavailable Warner, Maria Eugenia PA Unavailable Unavailable Warner, Maria Eugenia PA Unavailable Unavailable Warner, Maria Eugenia PA Unavailable Unavailable Warner, Maria Eugenia PA Unavailable Unavailable Warner, Maria Eugenia PA Unavailable Unavailable Juan Luis Elena MD Unavailable Unavailable Juan Luis Elena MD Unavailable Unavailable Juan Luis Elena MD Unavailable Unavailable Juan Luis Elena MD Unavailable Unavailable Juan Luis Elena MD Unavailable Unavailable Juan Luis Elena MD Unavailable Unavailable Juan Luis Elena MD Unavailable Unavailable Juan Luis Elena MD Unavailable Unavailable Juan Luis Elena MD Unavailable Unavailable Juan Luis Elena MD Unavailable Unavailable Juan Luis Elena MD Unavailable Unavailable Juan Luis Elena MD Unavailable Unavailable Juan Luis Elena MD Unavailable Unavailable Juan Luis Elena MD Unavailable Unavailable Juan Luis Elena MD Unavailable Unavailable Juan Luis Elena MD Unavailable Unavailable Juan Luis Elena MD Unavailable Unavailable Juan Luis Elena MD Unavailable Unavailable Juan Luis Elena MD Unavailable Unavailable Juan Luis Elena MD Unavailable Unavailable Juan Luis Elena MD Unavailable Unavailable Juan Luis Elena MD Unavailable Unavailable Juan Luis Elena MD Unavailable Unavailable Juan Luis Elena MD Unavailable Unavailable Juan Luis Elena MD Unavailable Unavailable Juan Luis Elena MD Unavailable Unavailable Juan Luis Elena MD Unavailable Unavailable Juan Luis Elena MD Unavailable Unavailable Juan Luis Elena MD Unavailable Unavailable Juan Luis Elena MD Unavailable Unavailable Juan Luis Elena MD Unavailable Unavailable LyndaJuan Luis lindo MD Unavailable Unavailable LyndaJuan Luis lindo MD Unavailable Unavailable LyndaJuan Luis lindo MD Unavailable Unavailable LyndaJuan Luis lindo MD Unavailable Unavailable LyndaJuan Luis lindo MD Unavailable Unavailable LyndaJuan Luis lindo MD Unavailable Unavailable LyndaJuan Luis lindo MD Unavailable Unavailable LyndaJuan Luis lindo MD Unavailable Unavailable LyndaJuan Luis lindo MD Unavailable Unavailable LyndaJuan Luis lindo MD Unavailable Unavailable LyndaJuan Luis lindo MD Unavailable Unavailable LyndaJuan Luis lindo MD Unavailable Unavailable LyndaJuan Luis lindo MD Unavailable Unavailable LyndaJuan Luis lindo MD Unavailable Unavailable LyndaJuan Luis lindo MD Unavailable Unavailable LyndaJuan Luis lindo MD Unavailable Unavailable LyndaJuan Luis lindo MD Unavailable Unavailable LyndaJuna Luis lindo MD Unavailable Unavailable LyndaJuan Luis lindo MD Unavailable Unavailable LyndaJuan Luis lindo MD Unavailable Unavailable LyndaJuan Luis lindo MD Unavailable Unavailable LyndaJuan Luis lindo MD Unavailable Unavailable LyndaJuan Luis lindo MD Unavailable Unavailable LyndaJuan Luis lindo MD Unavailable Unavailable LyndaJuan Luis lindo MD Unavailable Unavailable LyndaJuan Luis lindo MD Unavailable Unavailable LyndaJuan Luis lindo MD Unavailable Unavailable LynJuan Luis garcia MD Unavailable Unavailable LyndaJuan Luis lindo MD Unavailable Unavailable LyndaJuan Luis lindo MD Unavailable Unavailable LynJuan Luis garcia MD Unavailable Unavailable LynJuan Luis garcia MD Unavailable Unavailable LynJuan Luis garcia MD Unavailable Unavailable LynJuan Luis garcia MD Unavailable Unavailable LynJuan Luis garcia MD Unavailable Unavailable LyndaJuan Luis lindo MD Unavailable Unavailable LyndaJuan Luis lindo MD Unavailable Unavailable LynJuan Luis garcia MD Unavailable Unavailable LynJuan Luis garcia MD Unavailable Unavailable LynJuan Luis garcia MD Unavailable Unavailable LynJuan Luis garcia MD Unavailable Unavailable LyndaJuan Luis lindo MD Unavailable Unavailable LyndaJuan Luis lindo MD Unavailable Unavailable LyndaJuan Luis lindo MD Unavailable Unavailable LyndaJuan Luis lindo MD Unavailable Unavailable LynJuan Luis garcia MD Unavailable Unavailable LynJuan Luis garcia MD Unavailable Unavailable LynJuan Luis garcia MD Unavailable Unavailable LyndaJuan Luis lindo MD Unavailable Unavailable LyndaJuan Luis lindo MD Unavailable Unavailable LynJuan Luis garciaen MD Unavailable Unavailable Juan Luis Elena MD Unavailable Unavailable Juan Luis Elena MD Unavailable Unavailable Juan Luis Elena MD Unavailable Unavailable Juan Luis Elena MD Unavailable Unavailable Juan Luis Elena MD Unavailable Unavailable Juan Luis Elena MD Unavailable Unavailable Juan Luis Elena MD Unavailable Unavailable Juan Luis Elena MD Unavailable Unavailable Juan Luis Elena MD Unavailable Unavailable Juan Luis Elena MD Unavailable Unavailable Juan Luis Elena MD Unavailable Unavailable Juan Luis Elena MD Unavailable Unavailable Juan Luis Elena MD Unavailable Unavailable Juan Luis Elena MD Unavailable Unavailable Juan Luis Elena MD Unavailable Unavailable Juan Luis Elena MD Unavailable Unavailable Warner, Maria Eugenia PA Unavailable Unavailable Warner, Maria Eugenia PA Unavailable Unavailable Warner, Maria Eugenia PA Unavailable Unavailable Warner, Maria Eugenia PA Unavailable Unavailable Warner, Maria Eugenia PA Unavailable Unavailable Warner, Maria Eugenia PA Unavailable Unavailable Warner, Maria Eugenia PA Unavailable Unavailable Warner, Maria Eugenia PA Unavailable Unavailable Warner, Maria Eugenia PA Unavailable Unavailable Warner, Maria Eugenia PA Unavailable Unavailable Warner, Maria Eugenia PA Unavailable Unavailable Warner, Maria Eugenia PA Unavailable Unavailable Warner, Maria Eugenia PA Unavailable Unavailable Warner, Maria Eugenia PA Unavailable Unavailable Warner, Maria Eugenia PA Unavailable Unavailable Warner, Maria Eugenia PA Unavailable Unavailable Warner, Maria Eugenia PA Unavailable Unavailable Warner, Maria Eugenia PA Unavailable Unavailable Warner, Maria Eugenia PA Unavailable Unavailable Warner, Maria Eugenia PA Unavailable Unavailable Warner, Maria Eugenia PA Unavailable Unavailable Warner, Maria Eugenia PA Unavailable Unavailable Warner, Maria Eugenia PA Unavailable Unavailable Warner, Maria Eugenia PA Unavailable Unavailable Warner, Maria Eugenia PA Unavailable Unavailable Warner, Maria Eugenia PA Unavailable Unavailable Warner, Maria Eugenia PA Unavailable Unavailable Warner, Maria Eugenia PA Unavailable Unavailable Warner, Maria Eugenia PA Unavailable Unavailable Warner, Maria Eugenia PA Unavailable Unavailable Warner, Maria Eugenia PA Unavailable Unavailable Warner, Maria Eugenia PA Unavailable Unavailable Warner, Maria Eugenia PA Unavailable Unavailable Warner, Maria Eugenia PA Unavailable Unavailable Warner, Maria Eugenia PA Unavailable Unavailable Warner, Maria Eugenia PA Unavailable Unavailable Warner, Maria Eugenia PA Unavailable Unavailable Warner, Maria Eugenia PA Unavailable Unavailable Warner, Maria Eugenia PA Unavailable Unavailable Warner, Maria Eugenia PA Unavailable Unavailable Warner, Maria Eugenia PA Unavailable Unavailable Warner, Maria Eugenia PA Unavailable Unavailable Warner, Maria Eugenia PA Unavailable Unavailable Warner, Maria Eugenia PA Unavailable Unavailable Warner, Maria Eugenia PA Unavailable Unavailable Warner, Maria Eugenia PA Unavailable Unavailable Warner, Maria Eugenia PA Unavailable Unavailable Warner, Maria Eugenia PA Unavailable Unavailable Warner, Maria Eugenia PA Unavailable Unavailable Warner, Maria Eugenia PA Unavailable Unavailable Warner, Maria Eugenia PA Unavailable Unavailable Warner, Maria Eugenia PA Unavailable Unavailable Warner, Maria Eugenia PA Unavailable Unavailable Warner, Maria Eugenia PA Unavailable Unavailable Warner, Maria Eugenia PA Unavailable Unavailable Warner, Maria Eugenia PA Unavailable Unavailable Warner, Maria Eugenia PA Unavailable Unavailable Warner, Maria Euegnia PA Unavailable Unavailable Warner, Maria Eugenia PA Unavailable Unavailable Warner, Maria Eugenia PA Unavailable Unavailable Warner, Maria Eugenia PA Unavailable Unavailable Warner, Maria Eugenia PA Unavailable Unavailable Warner, Maria Eugenia PA Unavailable Unavailable Warner, Maria Eugenia PA Unavailable Unavailable Warner, Maria Eugenia PA Unavailable Unavailable Warner, Maria Eugenia PA Unavailable Unavailable Warner, Maria Eugenia PA Unavailable Unavailable Warner, Maria Eugenia PA Unavailable Unavailable Warner, Maria Eugenia PA Unavailable Unavailable Warner, Maria Eugenia PA Unavailable Unavailable Warner, Maria Eugenia PA Unavailable Unavailable Warner, Maria Eugenia PA Unavailable Unavailable Warner, Maria Eugenia PA Unavailable Unavailable Warner, Maria Eugenia PA Unavailable Unavailable Warner, Maria Eugenia PA Unavailable Unavailable Warner, Maria Eugenia PA Unavailable Unavailable Warner, Maria Eugenia PA Unavailable Unavailable Warner, Maria Eugenia PA Unavailable Unavailable Warner, Maria Eugenia PA Unavailable Unavailable Warner, Maria Eugenia PA Unavailable Unavailable Warner, Maria Eugenia PA Unavailable Unavailable Warner, Maria Eugenia PA Unavailable Unavailable Re-disclosure Warning The records that you are about to access may contain information from federally-assisted alcohol or drug abuse programs. If such information is present, then the following federally mandated warning applies: This information has been disclosed to you from records protected by federal confidentiality rules (42 CFR part 2). The federal rules prohibit you from making any further disclosure of this information unless further disclosure is expressly permitted by the written consent of the person to whom it pertains or as otherwise permitted by 42 CFR part 2. A general authorization for the release of medical or other information is NOT sufficient for this purpose. The Federal rules restrict any use of the information to criminally investigate or prosecute any alcohol or drug abuse patient.The records that you are about to access may contain highly sensitive health information, the redisclosure of which is protected by Article 27-F of the [facility] Public Health law. If you continue you may have access to information: Regarding HIV / AIDS; Provided by facilities licensed or operated by the [facility] Office of Mental Health; or Provided by the [facility] Office for People With Developmental Disabilities. If such information is present, then the following [facility] mandated warning applies: This information has been disclosed to you from confidential records which are protected by state law. State law prohibits you from making any further disclosure of this information without the specific written consent of the person to whom it pertains, or as otherwise permitted by law. Any unauthorized further disclosure in violation of state law may result in a fine or usp sentence or both. A general authorization for the release of medical or other information is NOT sufficient authorization for further disc losure. Family History Family Member Name Family Member Gender Family Member Status Date o f Status Description Data Source(s) Unknown Unknown Problem [facility] ([facility]) cousin Unknown Male Problem [facility] ([facility] bypass surgery Unknown Female Problem [facility] ([facility]) Unknown Female Problem [facility] ([facility] ) Encounters Encounter Providers Location Date Indications Data Source(s ) Emergency Attender: JENISE OLVERAConsultant: Maria Eugenia LINDSEY 07/30/2021 11:15:00 AM EST - 07/30/2021 11:59:00 AM [facility] Patient discharged. Outpatient Attender: Maria Eugenia LINDSEY 07/23/2021 03:40:00 PM [facility] Outpatient<td ID="encounterTypeDescripti onID0">nursing visit</td><td>Maria Eugenia Warner [facility]</td><td>[facility]</td><td>07/23/2021</td><td>3:22PM</td><td>3:58PM</td><td></td> [facility]00 P M EST - 07/23/2021 03:58:34 PM [facility] ([facility]) Outpatient<td ID="encounterTypeDescripti onID1">ANNUAL PE-followup exam</td><td>Maria Eugenia Warner [facility]</td><td>[facility], [facility]</td><td>07/05/2021</td><td>2:39PM</td><td>3:41PM</td><td><content ID="encounterDiagnosisID1-0">Routine History and Physical Adult (18 - 64 Yrs)</content>, <content ID="encounterDiagnosisID1-1">Hypothyroidism Post Radio- iodine Treatment</content>, <content ID="encounterDiagnosisID1-2">Fatigue</content></td> Attender: Maria Eugenia LINDSEY [facility], [facility] 07/05/2021 02:39:00 PM EDT - 07/05/2021 03:41:00 PM EDT FatigueRoutine History and Physical Adul t (18 - 64 Yrs)FatigueRoutine History and Physical Adult (18 - 64 Yrs)Hypothyroidism Post Radio-iodine TreatmentHypothyroidism Post Radio-iodine Treatment [place] ([facility]) Fatigue Routine History and Physical Adult (18 - 64 Yrs) Fatigue Routine History and Physical Adult (18 - 64 Yrs) Hypothyroidism Post Radio-iodine Treatme nt Hypothyroidism Post Radio-iodine Treatme nt Outpatient Attender: U[place] Elena MD 02/23/2021 09:33:0 [address] [facility] E03.9 Outpatient Attender: Maria Eugenia LINDSEY 07/06/2020 09:31:[address] [facility] E55.83 Outpatient<td ID="encounterTypeDescripti onID2">[Patient Encounter]</td><td>[place]ano Elena MD</td><td></td><td>02/28/2021</td><td>07/04/2020 6:46PM</td><td>07/04/2020 11:59PM</td><td></td> Attender: [place] Elena MD 0 06:46:00 PM EDT - 07/04/2020 11:59:00 PM EDT [facility]) Outpatient<td ID="encounterTypeDescripti onID0">Problem visit - not contagious</td><td>Maria Eugenia Warner [facility]</td><td>[facility], [facility]</td><td>07/04/2020</td><td>2:13PM</td><td>3:11PM</td><td><content ID="encounterDiagnosisID0-0">Fatigue</content>, <content ID="encounterDiagnosisID0-1">Hypothyroidism</content></td> Attender: Maria Eugenia Warner [facility], [facility] 07/04/2020 02:13:00 P M EDT - 07/04/2020 03:11:00 PM EDT HypothyroidismFatigue [facility]) Hypothyroidism Fatigue Medications Medication Brand Name Start Date Product Form Dose Route Admi nistrative Instructions Pharmacy Instructions Status Indications Reaction Description Data Source(s) 200 mcg 07/25/2021 12:00:00 AM EST tablet 5 TAKE ONE TABLET BY MOUTH EVERY DAY TAKE ONE TABLET BY MOUTH EVERY DAY SOLD: 07/25/2021 [facility] Levothyroxine Sodium 0.2 MG Oral Tablet Levothyroxine Sodium 200 MCG Oral Tablet Levothyroxine Sodium 200 MCG Oral Tablet 06/27/2021 12:00:00 AM EDT 1 active levothyroxine sodium 0.2 MG Oral Tablet [place] ([facility]) 200 mcg 06/12/2021 12:00:00 AM EDT tablet 30 TAKE ONE TABLET BY MOUTH EVERY DAY TAKE ONE TABLET BY MOUTH EVERY DAY SOLD: 06/12/2021 [facility] Levothyroxine Sodium 0.2 MG Oral Tablet Levothyroxine Sodium 200 MCG Oral Tablet Levothyroxine Sodium 200 MCG Oral Tablet 06/12/2021 12:00:00 AM EDT 1 aborted levothyroxine sodium 0.2 MG Oral Tablet [place] ([facility]) 200 mcg 05/08/2021 12:00:00 AM EDT tablet 30 TAKE ONE TABLET BY MOUTH EVERY DAY TAKE ONE TABLET BY MOUTH EVERY DAY SOLD: 05/08/2021 [facility] Levothyroxine Sodium 0.2 MG Oral Tablet Levothyroxine Sodium 200 MCG Oral Tablet Levothyroxine Sodium 200 MCG Oral Tablet 05/07/2021 12:00:00 AM EDT 1 aborted levothyroxine sodium 0.2 MG Oral Tablet [facility]) 200 mcg 04/03/2021 12:00:00 AM EDT tablet 30 TAKE ONE TABLET BY MOUTH EVERY DAY TAKE ONE TABLET BY MOUTH EVERY DAY SOLD: 04/04/2021 [facility] Levothyroxine Sodium 0.2 MG Oral Tablet Levothyroxine Sodium 200 MCG Oral Tablet Levothyroxine Sodium 200 MCG Oral Tablet 03/03/2021 12:00:00 AM EDT 1 aborted levothyroxine sodium 0.2 MG Oral Tablet [place] ([facility]) Levothyroxine Sodium 0.2 MG Oral Tablet Levothyroxine Sodium 200 MCG Oral Tablet Levothyroxine Sodium 200 MCG Oral Tablet 10/09/2020 12:00:00 AM EST 1 aborted levothyroxine sodium 0.2 MG Oral Tablet [place] ([facility]) Levothyroxine Sodium 0.2 MG Oral Tablet Levothyroxine Sodium 200 MCG Oral Tablet Levothyroxine Sodium 200 MCG Oral Tablet 05/18/2020 12:00:00 AM EDT 1 aborted levothyroxine sodium 0.2 MG Oral Tablet [place] ([facility]) 24 HR Diltiazem Hydrochloride 120 MG Ext ended Release Oral Capsule [Cartia] Cartia XT 120MG Oral Capsule Extended Release 24 Hour Cartia XT 120MG Oral Capsule Extended Release 24 Hour 08/11/2017 12:00:00 AM EST 1 aborted 24 HR diltiazem hydrochloride 120 MG Extended Release Oral Capsule [Cartia] [facility] ([facility]) Fluticasone Propionate 50 MCG/ACT Suspension Fluticaso ne Propionate 50 MCG/ACT Suspension 12/03/2016 12:00:00 AM EDT aborted fluticasone propionate 0.05 MG/ACTUAT Metered Dose Nasal [facility]) Amoxicillin 875 MG / Clavulanate 125 MG Oral Tablet [Augmentin] Augmentin 875- 125 MG Tablet Augmentin 875-125 MG Tablet 12/03/2016 12:00:00 AM EDT 1 aborted amoxicillin 875 MG / clavulanate 125 MG Oral Tablet [Augmentin] [place] ([facility]) Hydroxyzine Hydrochloride 25 MG Oral Tablet HydrOXYzin e HCl 25 MG Tablet HydrOXYzine HCl 25 MG Tablet 11/30/2014 12:00:00 AM EDT aborted hydroxyzine hydrochloride 25 MG Oral Tablet [place] ([facility]) Penicillin V Potassium 500 MG Oral Tablet Penicillin V Potassium 500 MG OR TABS Penicillin V Potassium 500 MG OR TABS 10/01/2013 12:00:00 AM EST 1 aborted penicillin V potassium 500 MG Or al Tablet [place] ([facility]) Insurance Providers Payer name Policy type / Coverage type Policy ID Covered alliance party ID Covered alliance party's relationship to arriaga Policy [place] Plan Information [place] Other 0 [id number] Self 0 [place] Other 0 [id number] Self 0 [place] Other 0 [id number] Self 0 [place] [id number] [place] Other 0 [id number] Self 0 [place] Other 0 [id number] Self 0 [facility] (al) Commercial [id number] Self MEDICAID [id number] SP [id number] [facility] Community Plan Commercial [id number] Self Acc/Dol [place] () Workers Compensation [id number] Self [id number] Acc/Dol [place] () Workers Compensation [id number] Self [facility] [place] [id number] [place] [id number] [place] B [id number] Self [id number] A[employer]na Commercial [id number] Self [id number] [place] DEPT OF LABOR [id number] SP [id number] Aetna Other 0 [id number] Self 0 [place] DEPT OF LABOR [id number] SP [id number] [facility] [id number] SP [id number] [facility] POSTAL SERVICE [id number] SP [id number] Aetna Health Maintenance Organization (HMO) [id number] Self W [id number] [employer] Health Maintenance Organization (HMO) [id number] Self W [id number] Aetna Other 0 [id number] Self 0 Aetna Other 0 [id number] Self 0 [place] DEPART OF LABOR O [id number] S [id number] Aetna (pr) Medigap Part B [id number] [place] [id number] SP [id number] F AETNA [place] [id number] SP [id number] [place]ETNA [place] [id number] SP [id number] MEDICAID -O/P EMERGENCY ROOM [id number] AETNA -O/P [id number] 18 [id number] Aetna Other 0 [id number] Self 0 Aetna Other 0 [id number] Self 0 Aetna Other 0 [id number] Self 0 Managed Care [facility] Community Plan P UNAVAILABLE S UNAVAILABLE Aetna Other 0 [id number] Self 0 MEDICAID [id number] SP [id number] [employer] [id number] SP [id number] Problems, Conditions, and Diagnoses Code Display Name Description Problem Type Effective Dates Data Source(s) 60502488 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 Problem 02/28/2021 06:46:00 PM EDT [facility]) [id number] 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 Problem 02/28/2021 06:46:00 PM T [facility] ([facility]) Surgeries/Procedures Procedure Description Date Indications Data Source(s) Venipuncture (routine) Venipuncture (routine) 07/05/2021 12:00:00 A M EDT [place] ([facility]) Free T4- Free Thryoxine Free T4- Free Thryoxine 07/05/2021 12:00: 00 AM [facility]) TSH- Thyroid Stimulating Hormone TSH- Thyroid Stimulating Ho rmone 07/05/2021 12:00:00 AM EDT [place] ([facility]) Venipuncture (routine) Venipuncture (routine) 07/06/2020 12:00:00 A M EDT [place] ([facility]) General Health Panel( CMP, CBC, TSH) General Health Panel( C MP, CBC, TSH) 07/06/2020 12:00:00 AM EDT [place] ([facility]) Free T4- Free Thryoxine Free T4- Free Thryoxine 07/06/2020 12:00: 00 AM EDT [place] ([facility]) Results ID Date Data Source [id number] 07/30/2021 11:15:00 AM [place] [id number] [facility] Emergency Department [address] [place] [address] Phone #: ext- [phone] 07/30/2021 11:06 Patient: KENN IYER Sex: M : 1985 Age: 36yWeight: 95.2 kgHeight/Length: 71 in.BMI: 29.3ALLERGIES: NoneThe patient's Home Medications are listed below:THE FOLLOWING MEDICATIONS NEED TO BE RECONCILED: Synthroid Oral (175 mcg), dailyThe source(s) of the original Home Medication information:Not obtained.The following Medications were given to the patient in the Emergency Department:None.The following Medications were prescribed to the patient:None. Name Value Range Interpretation Code Description Data Narcisa rce(s) Supporting Document(s) ID Date Data Source [id number] 07/30/2021 11:15:00 AM [facility] [address] [facility] Emergency Department [address] [place] [address] Phone #: ext- [phone] 07/30/2021 11:06 Patient: KENN IYER Sex: M : 1985 Age: 36yWeight: 95.2 kgHeight/Length: 71 inBMI: 29.3ALLERGIES: NoneDate/Time Medication Administered Medication Ordered Name Value Range Interpretation Code Description Data Narcisa rce(s) Supporting Document(s) ID Date Data Source [id number] 07/30/2021 11:15:00 AM [facility] 1 Clinical Report - Nurses [facility] Emergency Department [address] [place] [address] Phone #: ext- [phone] 07/30/2021 11:06 Patient: KENN IYER Sex: M : 1985 Age: 36yTRIAGEArrived by private vehicle. Historian: patient. Accompanied by family. ( covid + found out friday last).Acuity: LEVEL 3.Chief Complaint: NAUSEA, VOMITING and DIARRHEA.Alert.Onset. (friday). The patient has had nausea, vomiting and diarrhea. The patient has had abdominalpain. The pain is described as located in the RLQ and associated with nausea and vomiting. No diarrhea.( headache).Treatment CONTROL PANEL ASSEMBLER:None. --11:18 07/30/21 Quynh Guzman R.N.Weight: 95.2 kg stated. Height/Length: 71 inches Per Patient. BMI: 29.3. --11:14 07/30/21 Quynh Guzman R.N.MedicationsSynthroid Oral (Tablet 175 mcg), daily. --11:16 07/30/21 Quynh Guzman R.N.AllergiesNone. --11:16 07/30/21 Quynh Guzman R.N.PROBLEMS:Hypothyroidism.COVID-19. --11:16 07/30/21 Quynh Guzman R.N.ADDITIONAL SURGERIES:no known surgeries.HistoryPAST MEDICAL HX: Immunizations: up-to-date.SOCIAL HX: Never smoker. Occasional alcohol use. No drug use. No recent travel. No knowncontact with a sick individual. The patient was offered HIV testing but declined and hepatitis C testing butdeclined. The patient has not traveled outside the [place]Infectious disease exposure: The patient was exposed to Coronavirus. (not vaccinated covid+). Patient isnot a known carrier of tuberculosis, hepatitis, HIV, MRSA or VRE. Patient is not a known carrier of CRE.SELF HARM ASSESSMENT: Self harm assessment was performed. The patient answered "no" to thequestion(s) "Have you recently felt down, depressed, or hopeless?" and "Do you have thoughts of harmingor killing yourself?". 2 Clinic al Report - Nurses [facility] Emergency Department [address] [place] [address] Phone #: ext- [phone] 07/30/2021 11:06 Patient: KENN IYER Sex: M : 1985 Age: 36y ABUSE ASSESSMENT: Abuse assessment. Abuse denied. No suspicion of abuse. No report of abuse. NUTRITIONAL RISK ASSESSMENT: The nutritional risk assessment revealed no deficiencies. FUNCTIONAL ASSESSMENT: Functional assessment: no impairments noted. LEARNING NEEDS ASSESSMENT: The learning needs assessment revealed no barriers. FALL RISK ASSESSMENT: Fall risk assessment completed. No risk factors identified. SKIN INTEGRITY ASSESSMENT: Skin integrity risk assessment completed. No skin integrity risk identified. --11:18 07/30/21 Quynh Guzman R.N. Interventions Identification band on patient. To treatment room. --11:18 07/30/21 Quynh Guzman R.N.DISPOSITION / DISCHARGE The patient left the Emergency Department before registration and without being seen by a physician; patient was accompanied by spouse. The patient appears to be alert and oriented x4. The patient left the Emergency Department via private vehicle. --11:58 07/30/21 Quynh Guzman R.N.Locked/Released at 07/30/2021 11:59 by Quynh Guzman R.N. Name Value Range Interpretation Code Description Data Narcisa rce(s) Supporting Document(s) ID Date Data Source [id number] 07/26/2021 05:12:[address] [facility] RESULTS CALLED TO PUBLIC HEALTH (ETELVINA Bee) 07-26-21 AT 1758BY JORGE L YANG Name Value Range Interpretation Code Description Data Narcisa rce(s) Supporting Document(s) COVID-19 SANDRO (SARS-CoV-2) DETECTED NOT DETECTED Above high normal [facility] A Detected result indicates that the pat ient's specimenwas positive for SARS-CoV-2 RNA.Test Method: Nucleic Acid Amplification Test includingreverse dry man polymerase chain reaction (RT-PCR)and dry man mediated amplification (TMA). The testmethod meets the [place] Centers for Disease Control andprevention (CDC) pre departure and arrival requirementfor viral test for COVID-19 dated October 12, 2020.Testing requirements for traveling may change with time.The patient is responsible for determining the testrequirements for each nation while they are traveling.This test has been authorized by the FDA under anEmergency Use Authorization (EUA) for use by authorizedlaboratories.Please review the "Fact Sheets" and FDA authorizedlabeling available for health care providers andpatients using the following websites:https://www.[employer].com/home/Covid-19/HCP/NAAT/fact-gotjt2yrqt s://www.[employer].com/home/Covid-19/Patients/NAAT/fact-zcqex0Kov to the current public health emergency, [facility] is accepting samples from appropriateclinical sources collected using wide variety ofswabs and transport media for COVID-19. Not detectedtest results derived from specimens received in non-commercially manufactured viral collection kits or thosenot yet authorized by FDA for COVID-19 testing should becautiously evaluated and take extra precautions such asadditional clinical monitoring, including collectionof an additional specimen.Additional information about COVID-19 can be foundat the [employer] website:www.[facility].Intellinote/Covid19.THIS TEST WAS PERFORMED AT:[facility])[address] [place] [id number] MIRZA MD ID Date Data Source [id number] 07/26/2021 05:07:00 PM EST [facility] Name Value Range Interpretation Code Description Data Narcisa rce(s) Supporting Document(s) [id number] DETECTED Abnormal (applies to non-numeric res ults) Phone [facility] A Detected result indicates that the pat ient's specimenwas positive for SARS-CoV-2 RNA.Test Method: Nucleic Acid Amplification Test includingreverse dry man polymerase chain reaction (RT-PCR)and dry man mediated amplification (TMA). The testmethod meets the [place] Centers for Disease Control andprevention (CDC) pre departure and arrival requirementfor viral test for COVID-19 dated October 12, 2020.Testing requirements for traveling may change with time.The patient is responsible for determining the testrequirements for each nation while they are traveling.This test has been authorized by the FDA under anEmergency Use Authorization (EUA) for use by authorizedlaboratories.Please review the "Fact Sheets" and FDA authorizedlabeling available for health care providers andpatients using the following websites:https://www.[employer]ell[employer]ote/home/Covid-19/HCP/NAAT/fact-azrsc1pkai s://www.[employer]/home/Covid-19/Patients/NAAT/fact-yquso0Ssi to the current public health emergency, [facility] is accepting samples from appropriateclinical sources collected using wide variety ofswabs and transport media for COVID-19. Not detectedtest results derived from specimens received in non-commercially manufactured viral collection kits or thosenot yet authorized by FDA for COVID-19 testing should becautiously evaluated and take extra precautions such asadditional clinical monitoring, including collectionof an additional specimen.Additional information about COVID-19 can be foundat the [employer] website:www.[facility].Intellinote/Covid19. ID Date Data Source [id number] 07/26/2021 05:04:00 PM EST [facility] Name Value Range Interpretation Code Description Data Narcisa rce(s) Supporting Document(s) [id number] DETECTED Abnormal (applies to non-numeric res ults) Phone [facility] A Detected result indicates that the pat ient's specimenwas positive for SARS-CoV-2 RNA.Test Method: Nucleic Acid Amplification Test includingreverse dry man polymerase chain reaction (RT-PCR)and dry man mediated amplification (TMA). The testmethod meets the [place] Centers for Disease Control andprevention (CDC) pre departure and arrival requirementfor viral test for COVID-19 dated October 12, 2020.Testing requirements for traveling may change with time.The patient is responsible for determining the testrequirements for each nation while they are traveling.This test has been authorized by the FDA under anEmergency Use Authorization (EUA) for use by authorizedlaboratories.Please review the "Fact Sheets" and FDA authorizedlabeling available for health care providers andpatients using the following websites:https://www.[employer]/home/Covid-19/HCP/NAAT/fact-iezki1jxnu s://www.[employer]/home/Covid-19/Patients/NAAT/fact-kutgt5Igu to the current public health emergency, [facility] is accepting samples from appropriateclinical sources collected using wide variety ofswabs and transport media for COVID-19. Not detectedtest results derived from specimens received in non-commercially manufactured viral collection kits or thosenot yet authorized by FDA for COVID-19 testing should becautiously evaluated and take extra precautions such asadditional clinical monitoring, including collectionof an additional specimen.Additional information about COVID-19 can be foundat the [employer] website:www.[facility].Intellinote/Covid19. ID Date Data Source [id number] 07/05/2021 01:08:00 PM EDT [place] ([facility]) Name Value Range Interpretation Code Description Data Narcisa rce(s) Supporting Document(s) TSH 29.305 uIu/mL Above high normal TSH EDYTA [facility] ([facility]) Note: Responsible Observer: KM ID Date Data Source [id number] 07/05/2021 01:08:00 PM EDT [place] ([facility]) Name Value Range Interpretation Code Description Data Narcisa rce(s) Supporting Document(s) FREE T4 0.83 ng/dl FREE T4 [facility]) Note: Responsible Observer: KM ID Date Data Source [id number] 02/23/2021 05:39:00 PM [facility] Name Value Range Interpretation Code Description Data Narcisa rce(s) Supporting Document(s) Thyroxine (T4) free [Mass/volume] in Serum or Plasma 0.92 ng/dL 0.89- 1.[address] [facility] ID Date Data Source [id number] 02/25/2021 06:41:00 AM [facility] Name Value Range Interpretation Code Description Data Narcisa rce(s) Supporting Document(s) 25-Hydroxyvitamin D2+25-Hydroxyvitamin D3 [Mass/volume ] in Serum or Plasma 22 ng/mL 30-100 [facility] Vitamin D Status 25-OH Vitamin D :Deficiency: <20 ng/mLInsufficiency: 20 - 29 ng/mLOptimal: > or = 30 ng/mLFor 25-OH Vitamin D testing on patients onD2-supplementation and patients for whom quantitationof D2 and D3 fractions is required, the Light[employer] NetworksureD(TM)25- OH VIT D, (D2,D3), LC/MS/MS is recommended: ordercode 91422 (patients >2yrs).See Note 1Note 1For additional information, please refer tohttp://education.[employer]/faq/FIL092(This link is being provided for informational/educational purposes only.)THIS TEST WAS PERFORMED AT:[facility] [employer] [address]TONY MEHTA MD ID Date Data Source [id number] 02/23/2021 05:39:00 PM [facility] Name Value Range Interpretation Code Description Data Narcisa rce(s) Supporting Document(s) Thyrotropin [Units/volume] in Serum or Plasma by Detec tion limit <= 0.005 mIU/L 7.81 u[iU]/mL 0.35-5.50 Above high normal [facility] ospital ID Date Data Source [id number] 02/23/2021 09:33:00 AM [facility]) Name Value Range Interpretation Code Description Data Narcisa rce(s) Supporting Document(s) Reported Physicians See Note Reported Physici ans [place] ([facility]) Note: Reported Physicians:Ordering: Urbano Huitron: Urbano Elena ID Date Data Source [id number] 02/23/2021 09:33:00 AM [facility] ([facility]) Name Value Range Interpretation Code Description Data Narcisa rce(s) Supporting Document(s) Thyrotropin [Units/volume] in Serum or Plasma by Detec tion limit <= 0.005 mIU/L 7.81 MicroInternationalUnitsPerMilliLiter_[Arbitrary_Con Abo ve high normal TSH SerPl DL<=0.005 mIU/L-[facility] ([facility]) Note: Responsible Observer: TSH TSH 600 .7055 (D) ID Date Data Source [id number] 02/23/2021 09:33:00 AM [facility] ([facility]) Name Value Range Interpretation Code Description Data Narcisa rce(s) Supporting Document(s) Reported Physicians See Note Reported [facility] ([facility]) Note: Reported Physicians:Ordering: Urbano Huitron: Urbano Elena ID Date Data Source [id number] 02/23/2021 09:33:00 AM [facility] ([facility]) Name Value Range Interpretation Code Description Data Narcisa rce(s) Supporting Document(s) 25-Hydroxyvitamin D2+25-Hydroxyvitamin D3 [Mass/volume ] in Serum or Plasma 22 NanoGramsPerMilliLiter_[Mass_Concentration_Units] 25(OH)D3+25(OH)D2 [facility] ([facility]) Note: Vitamin D Status 25-OH Vit borrero D:Deficiency: <20 ng/mLInsufficiency: 20 - 29 ng/mLOptimal: > or = 30 ng/mLFor 25-OH Vitamin D testing on patients onD2-supplementation and patients for whom quantitationof D2 and D3 fractions is required, the QuestAssureD(TM)25-OH VIT D, (D2,D3), LC/MS/MS is recommended: ordercode 64160 (patients >2yrs).See Note 1Note 1For additional information, please refer tohttp://education.[facility].Intellinote/faq/PWE568(This link is being provided for informational/educational purposes only.)THIS TEST WAS PERFORMED AT:[facility] [address]MADAN MARIesponsible Observer: Vitamin D 25-OH Vitamin D 25-Hydroxy [id number] 914.1810 (QUEST) ID Date Data Source [id number] 02/23/2021 09:33:00 AM [facility]) Name Value Range Interpretation Code Description Data Narcisa rce(s) Supporting Document(s) Thyroxine (T4) free [Mass/volume] in Serum or Plasma 0 .92 NanoGramsPerDeciLiter_[Mass_Concentration_Units] Normal T4 Free [facility]) Note: Responsible Observer: FREE T4 Free Thyroxine 600.7005 (D) ID Date Data Source [id number] 07/08/2020 05:51:00 AM [facility] Name Value Range Interpretation Code Description Data Narcisa rce(s) Supporting Document(s) Testosterone 355 ng/dL 250-827 [facility] THIS TEST WAS PERFORMED AT:[facility] [id number] MERATI,MD ID Date Data Source [id number] 07/08/2020 05:51:00 AM [facility] Name Value Range Interpretation Code Description Data Narcisa rce(s) Supporting Document(s) 25-Hydroxyvitamin D2+25-Hydroxyvitamin D3 [Mass/volume ] in Serum or Plasma 19 ng/mL 30-100 [facility] l Vitamin D Status 25-OH Vitamin D :Deficiency: <20 ng/mLInsufficiency: 20 - 29 ng/mLOptimal: > or = 30 ng/mLFor 25-OH Vitamin D testing on patients onD2-supplementation and patients for whom quantitationof D2 and D3 fractions is required, the QuestAssureD(TM)25- OH VIT D, (D2,D3), LC/MS/MS is recommended: ordercode 44937 (patients >2yrs).See Note 1Note 1For additional information, please refer tohttp://education.[employer]/faq/TWV267(This link is being provided for informational/educational purposes only.)THIS TEST WAS PERFORMED AT:[facility] [address] [address]TONY MEHTA MD ID Date Data Source [id number] 07/06/2020 09:31:00 AM EDT [place] ([facility]) Name Value Range Interpretation Code Description Data Narcisa rce(s) Supporting Document(s) TSH H uIu/mL Below low normal TSH [place] ([facility]) Note: Test Comment : Resulted 20.89Respo nsible Observer: ID Date Data Source [id number] 07/06/2020 09:31:00 AM EDT [place] ([facility]) Name Value Range Interpretation Code Description Data Narcisa rce(s) Supporting Document(s) FREE T4 0.94 ng/dl FREE T4 [place] ([facility]) Note: Responsible Observer: ID Date Data Source [id number] 07/06/2020 09:31:00 AM EDT [place] ([facility]) Name Value Range Interpretation Code Description Data Narcisa rce(s) Supporting Document(s) Albumin [Mass/volume] in Blood by Bromocresol purple ( BCP) dye binding method 4.7 g/dl Albumin [place] ([facility]) Note: Responsible Observer: KM Alkaline Phos 63 IU/L Alkaline Phos [place] ([facility]) Note: Responsible Observer: KM ALT 26 IU/L ALT [place] ([facility]) Note: Responsible Observer: KM AST 16 IU/L AST [place] ([facility]) Note: Responsible Observer: KM Calcium [Moles/volume] in Urine collected for unspecified durati on 9.7 mg/dl Calcium [place] ([facility]) Note: Responsible Observer: KM Urea nitrogen [Moles/volume] in Blood 15 mg/dl Urea Nitrogen [place] ([facility]) Note: Responsible Observer: KM Chloride [Moles/volume] in Serum, Plasma or Blood 103 mmol/L Chloride [place] ([facility]) Note: Responsible Observer: KM EGFR - AfricanAm > 60 N/A EGFR - AfricanAm [facility] Note: Responsible Observer: KM Creatinine [Moles/volume] in Vitreous fluid 1 mg/dl Creatinine [place] ([facility]) Note: Responsible Observer: KM CO2 24 mmol/L CO2 [place] ([facility]) Note: Responsible Observer: KM Potassium [Mass/volume] in Blood 4.7 mmol/L Pot assium [facility] ([facility]) Note: Responsible Observer: KM Sodium [Moles/volume] in Serum, Plasma or Blood 138 mmol/L Sodium [place] ([facility]) Note: Responsible Observer: KM Glucose [Mass/volume] in Urine collected for unspecified duration 9 9 mg/dl Glucose [place] ([facility]) Note: Responsible Observer: KM EGFR - Non AF AM > 60 N/A EGFR - Non AF AM [facility] Note: Responsible Observer: KM Total Bilirubin 0.7 mg/dl Total Bilirubin [facility] ([facility]) Note: Responsible Observer: KM Total Protein 7.3 g/dl Total Protein [place] ([facility]) Note: Responsible Observer: KM ID Date Data Source [id number] 07/06/2020 09:31:00 AM EDT [place] ([facility]) Name Value Range Interpretation Code Description Data Narcisa rce(s) Supporting Document(s) GRAN# 3.0 /mm3 GRAN# [place] ([facility]) Note: Responsible Observer: KM GRAN% 49.1 % Below low normal GRAN% [facility] ([facility]) Note: Responsible Observer: KM HGB 15.8 g/dl HGB [place] ([facility]) Note: Responsible Observer: KM HCT 46.9 % HCT [place] ([facility]) Note: Responsible Observer: KM LY# 2.8 /mm3 LY# [facility] ([facility]) Note: Responsible Observer: KM LY% 45.3 % Above high normal LY% [place] ([facility]) Note: Responsible Observer: KM MCH 30.9 pg MCH [place] ([facility]) Note: Responsible Observer: KM MCV 92.0 um3 MCV [facility] ([facility]) Note: Responsible Observer: KM MCHC 33.6 G/DL MCHC [place] ([facility]) Note: Responsible Observer: KM MID% 5.5 % MID% [place] ([facility]) Note: Responsible Observer: KM MPV 10.4 um3 MPV [place] ([facility]) Note: Responsible Observer: KM MID# 0.3 /mm3 MID# [place] ([facility]) Note: Responsible Observer: KM RDW 14.9 % RDW [place] ([facility]) Note: Responsible Observer: KM RBC 5.1 /mm3 RBC [facility] ([facility]) Note: Responsible Observer: KM PLT 188 /mm3 PLT [place] ([facility]) Note: Responsible Observer: KM WBC 6.1 /mm3 WBC [place] ([facility]) Note: Responsible Observer: KM ID Date Data Source [id number] 07/06/2020 09:31:00 AM [facility] ([facility]) Name Value Range Interpretation Code Description Data Narcisa rce(s) Supporting Document(s) Reported Physicians See Note Reported Physici ans [place] ([facility]) Note: Reported Physicians:Ordering: Atte nding: Maria Eugenia Warner ID Date Data Source [id number] 07/06/2020 09:31:00 AM [facility] ([facility]) Name Value Range Interpretation Code Description Data Narcisa rce(s) Supporting Document(s) 25-Hydroxyvitamin D2+25-Hydroxyvitamin D3 [Mass/volume ] in Serum or Plasma 19 NanoGramsPerMilliLiter_[Mass_Concentration_Units] 25(OH)D2+25(OH)D3 SerPl-nc [place] ([facility]) Note: Vitamin D Status 25-OH Vit borrero D:Deficiency: <20 ng/mLInsufficiency: 20 - 29 ng/mLOptimal: > or = 30 ng/mLFor 25-OH Vitamin D testing on patients onD2-supplementation and patients for whom quantitationof D2 and D3 fractions is required, the QuestAssureD(TM)25-OH VIT D, (D2,D3), LC/MS/MS is recommended: ordercode 11976 (patients >2yrs).See Note 1Note 1For additional information, please refer tohttp://[email or web address] [facility].Intellinote/faq/TZB985(This link is being provided for informational/educational purposes only.)THIS TEST WAS PERFORMED AT:[facility] [id number] MARIesponsible Observer: Vitamin D 25-OH Vitamin D 25-Hydroxy [id number] [phone] ([facility]) ID Date Data Source [id number] 07/06/2020 09:31:00 AM EDT [place] ([facility]) Name Value Range Interpretation Code Description Data Narcisa rce(s) Supporting Document(s) Reported Physicians See Note Reported Physici ans [place] ([facility]) Note: Reported Physicians:Ordering: Atte nding: Maria Eugenia Warner ID Date Data Source [id number] 07/06/2020 09:31:00 AM [facility] ([facility]) Name Value Range Interpretation Code Description Data Narcisa rce(s) Supporting Document(s) Testosterone [Moles/volume] in Serum or Plasma by Detection limit <= 3.47 pmol/L 355 NanoGramsPerDeciLiter_[Mass_Concentration_Units] Testosterone [place] ([facility]) Note: THIS TEST WAS PERFORMED AT:[facility] [id number] MARIesponsible Observer: Testosterone Testosterone [id number] [phone] ([facility]) Procedure Social History No Information Vital Signs ID Date Data Source UNK Name Value Range Interpretation Code Description Data Source(s) Body height 70.5 [in_i] 70.5 [in_i] [place] ([facility]) Systolic blood pressure 132 mm[Hg] 132 mm[Hg] [facility]) Provider recheck Diastolic blood pressure 82 mm[Hg] 82 mm[Hg] [place] ([facility]) Provider recheck Systolic blood pressure 150 mm[Hg] 150 mm[Hg] [facility] ([facility]) Diastolic blood pressure 88 mm[Hg] 88 mm[Hg] [place] ([facility]) Heart rate 80 /min 80 /min [place] ([facility]) Respiratory rate 22 /min 22 /min [place] ([facility]) Body height 70.5 [in_i] 70.5 [in_i] [place] ([facility]) Body weight 216 [lb_av] 216 [lb_av] [place] ([facility]) Body mass index (BMI) [Ratio] 30.6 kg/m2 30.6 k g/m2 [place] ([facility]) Body surface area Derived from formula 2.17 m2 2.17 m2 [place] ([facility]) Body weight 211 [lb_av] 211 [lb_av] [place] ([facility]) Systolic blood pressure 128 mm[Hg] 128 mm[Hg] [facility] Diastolic blood pressure 76 mm[Hg] 76 mm[Hg] [place] ([facility]) Heart rate 72 /min 72 /min [place] ([facility]) Respiratory rate 20 /min 20 /min [place] ([facility]) Patient Treatment Plan of Care Planned Activity Planned Date Details Description Data Source (s) Levothyroxine Sodium 0.2 MG Oral Tablet 06/27/2021 12:00:00 AM [facility] ([facility]) Levothyroxine Sodium 0.2 MG Oral Tablet 06/12/2021 12:00:00 AM [facility] ([facility]) Levothyroxine Sodium 0.2 MG Oral Tablet 05/07/2021 12:00:00 AM [facility]) Levothyroxine Sodium 0.2 MG Oral Tablet 03/03/2021 12:00:00 AM [facility]) Levothyroxine Sodium 0.2 MG Oral Tablet 10/09/2020 12:00:00 AM EST [facility]) Levothyroxine Sodium 0.2 MG Oral Tablet 05/18/2020 12:00:00 AM [facility]) Amoxicillin 875 MG / Clavulanate 125 MG Oral Tablet [A ugmentin] 12/03/2016 12:00:00 AM [facility] ([facility]) Fluticasone Propionate 50 MCG/ACT Suspension 12/03/2016 12:00:00 AM [facility]) Hydroxyzine Hydrochloride 25 MG Oral Tablet 11/30/2014 12:00:00 AM EDT [facility] ([facility]) Penicillin V Potassium 500 MG Oral Tablet 10/01/2013 12:00:00 AM [facility]NA [place] ([facility])
[2021-08-01] MEDS ORDERED: PSEUDOEPHEDRINE 30 MG TAB PO STA (16:48)
[2021-08-01] MEDS ORDERED: BENZONATATE 100MG CAPSULE PO ONE (16:50)
[2021-08-01] MEDS ORDERED: ONDANSETRON 4 MG ORAL DISINTEGRATING TAB PO ONE (16:50)
[2021-08-01] MEDS ORDERED: PSEU120T19 PO (17:46)
[2021-08-01] MEDS ORDERED: TESS100C PO (17:46)
[2021-08-01] MEDS ORDERED: MUCI120T PO (17:46)
[2021-08-01] MEDS ORDERED: ONDA4TAB6 PO (17:48)
[2021-08-01] MEDS ORDERED: ACETAMINOPHEN 500 MG TAB PO ONE (18:30)
[2021-08-01 18:43] VITALS: BP 123/78
== END 2021-08-01 18:47 | disposition home or self-care (01) ==
LOC: M ED 14:15
DX: U07.1 COVID-19 (principal); Z20.822 Contact with and (suspected) exposure to COVID-19; E03.9 Hypothyroidism, unspecified; Z79.899 Other long term (current) drug therapy
CPT/HCPCS: 99283; Q0162

== ENCOUNTER 2022-03-21 01:29 | Emergency (ER) | payer OTHER, MEDICAID ==
[~2022-03-21] VITALS: Ht 177.8 cm; Wt 95.5 kg
[~2022-03-21 01:29] MED LIST changes: +MUCI120T PO; +ONDA4TAB6 PO; +PSEU120T19 PO; +TESS100C PO
[2022-03-21 02:17] LABS: BASO % 0.4 % (0.0-1.0); EOS % 0.3 % (0.0-3.0); HEMATOCRIT 46.3 % (42.0-52.0); HEMOGLOBIN 16.5 g/dl (13.5-17.5); LYMPH # 1.3 10^3/uL (1.5-5.0); LYMPH % 14.1 % (24.0-44.0); MEAN CORPUSCULAR HEMOGLOBIN 30.4 pg (27.0-33.0); MEAN CORPUSCULAR HGB CONC 35.6 g/dl (32.0-36.5); MEAN CORPUSCULAR VOLUME 85.3 fl (80.0-96.0); MONO # 1.3 10^3/uL (0.0-0.8); MONO % 14.3 % (2.0-8.0); NEUTROPHILS # 6.3 10^3/uL (1.5-8.5); NEUTROPHILS % 70.7 % (36.0-66.0); PLATELET COUNT, AUTOMATED 175 10^3/uL (150-450); RED BLOOD COUNT 5.43 10^6/uL (4.30-6.10)
[2022-03-21 02:47] LABS: BLOOD UREA NITROGEN 8 MG/DL (7-18); CARBON DIOXIDE LEVEL 25 MEQ/L (21-32); CHLORIDE LEVEL 104 MEQ/L (98-107); CREATININE FOR GFR 1.04 MG/DL (0.70-1.30); GLOMERULAR FILTRATION RATE > 60.0 (>60); GLUCOSE, FASTING 139 MG/DL (70-100); POTASSIUM SERUM 3.6 MEQ/L (3.5-5.1); SODIUM LEVEL 137 MEQ/L (136-145)
[2022-03-21 03:02] LABS: CK-MB VALUE MASS < 1.0 NG/ML (<3.6); CPK CREATINE PHOSPHOKINASE 151 U/L (39-308); MB/CK RELATIVE INDEX 0.66 (< OR =4)
[2022-03-21] MEDS ORDERED: hydrALAZINE 20MG/ML 1ML VIAL (J0360 PER 20MG) IV ONE (03:15)
[2022-03-21] MEDS ORDERED: ISOVUE-370 76% 100ML VIAL As Ordered ONE (03:22)
[2022-03-21] MEDS ORDERED: hydrALAZINE 20MG/ML 1ML VIAL (J0360 PER 20MG) IV STA (04:33)
[2022-03-21 04:47] VITALS: BP 145/86
[2022-03-21] MEDS ORDERED: HYDR-3490 PO (05:49)
[2022-03-21] MEDS ORDERED: GI COCKTAIL 50ML BTL(HYOSCYAMINE/MAALOX/LIDOCAINE VISCOUS)(1:3:1) PO ONE (06:55)
[2022-03-21 07:34] VITALS: BP 144/83
== END 2022-03-21 07:44 | disposition home or self-care (01) ==
LOC: M ED 01:29
DX: R07.89 Other chest pain (principal); I45.19 Other right bundle-branch block; R16.1 Splenomegaly, not elsewhere classified; R91.8 Other nonspecific abnormal finding of lung field; K59.00 Constipation, unspecified; E03.9 Hypothyroidism, unspecified; Z87.19 Personal history of other diseases of the digestive system; Z79.890 Hormone replacement therapy
CPT/HCPCS: 71045; 71275; 74176; 80048; 82550; 82553; 84443; 84484; 85025; 93005; 93041; 94760; 96374; 96376; 99285; J0360; Q9967

== ENCOUNTER 2023-06-02 14:23 | Emergency (ER) | payer OTHER, MEDICAID ==
[~2023-06-02] VITALS: Ht 180.3 cm; Wt 95.7 kg
[~2023-06-02 14:23] MED LIST changes: +HYDR-3490 PO
[2023-06-02 14:24] VITALS: BP 142/88; TEMP 97.7; O2SAT 97
[2023-06-02 16:31] LABS: VENOUS BASE EXCESS 0.6 (-2.0-2.0); VENOUS HCO3 28.3 MMOL/L (23.0-27.0); VENOUS O2 SATURATION 60.6 % (60.0-80.0); VENOUS PARTIAL PRESSURE CO2 56.9 mmHg (38.0-50.0); VENOUS PARTIAL PRESSURE O2 32.6 mmHg (30.0-50.0); VENOUS PH 7.314 UNITS (7.330-7.430)
[2023-06-02 16:42] LABS: BASO % 0.6 % (0.0-1.0); EOS # 0.1 10^3/uL (0.0-0.5); EOS % 1.9 % (0.0-3.0); HEMATOCRIT 45.3 % (42.0-52.0); HEMOGLOBIN 15.7 g/dl (13.5-17.5); LYMPH # 2.4 10^3/uL (1.5-5.0); LYMPH % 33.9 % (24.0-44.0); MEAN CORPUSCULAR HEMOGLOBIN 30.8 pg (27.0-33.0); MEAN CORPUSCULAR HGB CONC 34.7 g/dl (32.0-36.5); MEAN CORPUSCULAR VOLUME 88.8 fl (80.0-96.0); MONO # 0.4 10^3/uL (0.0-0.8); NEUTROPHILS % 57.5 % (36.0-66.0); PLATELET COUNT, AUTOMATED 206 10^3/uL (150-450)
[2023-06-02 17:02] LABS: ETHYL ALCOHOL (ETHANOL) < 0.003 % (0.000-0.010)
[2023-06-02 17:04] LABS: ACETAMINOPHEN LEVEL < 2.0 UG/ML (10.0-20.0); ALBUMIN 4.4 G/DL (3.2-5.2); ALKALINE PHOSPHATASE 69 U/L (46-116); ALT/SGPT 28 U/L (7.0-40); AST/SGOT 18 U/L (<34); BILIRUBIN,DIRECT 0.2 MG/DL (<0.4); BILIRUBIN,TOTAL 0.6 MG/DL (0.3-1.2); BLOOD UREA NITROGEN 14 MG/DL (9-23); CALCIUM LEVEL 9.4 MG/DL (8.5-10.1); CARBON DIOXIDE LEVEL 31 MMOL/L (20-31); CHLORIDE LEVEL 107 MMOL/L (98-107); CREATININE FOR GFR 0.83 MG/DL (0.70-1.30); GLOMERULAR FILTRATION RATE > 60.0 (>60); GLUCOSE, FASTING 110 MG/DL (60-100); POTASSIUM SERUM 4.5 MMOL/L (3.5-5.1); SALICYLATE LEVEL < 3.0 MG/DL (<30); SODIUM LEVEL 143 MMOL/L (136-145); TOTAL PROTEIN 7.4 G/DL (5.7-8.2)
[2023-06-02 17:05] LABS: OSMOLALITY SERUM 301 MOSM/KG (275-295)
[2023-06-02 17:07] LABS: THYROID STIMULATING HORMONE 1.109 uIU/ML (0.55-4.78)
[2023-06-02 17:10] LABS: CPK CREATINE PHOSPHOKINASE 109 U/L (46-171)
== END 2023-06-02 18:39 | disposition home or self-care (01) ==
LOC: M ED 14:23
DX: T51.1X1A Toxic effect of methanol, accidental (unintentional), initial encounter (principal); X58.XXXA Exposure to other specified factors, initial encounter; Y92.89 Other specified places as the place of occurrence of the external cause; Y93.89 Activity, other specified; Y99.8 Other external cause status; J45.909 Unspecified asthma, uncomplicated; E03.9 Hypothyroidism, unspecified; Z79.899 Other long term (current) drug therapy

== ENCOUNTER 2023-06-26 11:34 | Day surgery (SDC) | payer OTHER, MEDICAID ==
[~2023-06-26] VITALS: Ht 180.3 cm; Wt 94.6 kg
[~2023-06-26 11:34] MED LIST changes: -LEVO200T4; +LEVO200T4 PO; +NS 1,000 ML IV ONE
[2023-06-26] MEDS ORDERED: LIDOCAINE 2% 100MG/5ML SDV (FOR ANES.) As Ordered ONE (11:44)
[2023-06-26] MEDS ORDERED: propofoL 200 MG/20 ML VIAL As Ordered ONE ×2 (11:44→13:23)
[2023-06-26] MEDS ORDERED: fentaNYL 100 MCG/2 ML INJECTION As Ordered ONE (12:52)
[2023-06-26 13:38] VITALS: TEMP 98.7
[2023-06-26 13:50] VITALS: BP 151/98; O2SAT 97
== END 2023-06-26 14:02 | disposition home or self-care (01) ==
LOC: M OPP 11:34
PROVIDERS: ATTEND Internal Medicine Gastroenterology
DX: D12.8 Benign neoplasm of rectum (principal); K63.5 Polyp of colon; K57.30 Diverticulosis of large intestine without perforation or abscess without bleeding; K64.8 Other hemorrhoids; K57.32 Diverticulitis of large intestine without perforation or abscess without bleeding; D50.9 Iron deficiency anemia, unspecified; K31.89 Other diseases of stomach and duodenum; Z79.890 Hormone replacement therapy; Z91.89 Other specified personal risk factors, not elsewhere classified
CPT/HCPCS: 43239; 45385; 88305; J3010